=== PATIENT | male | born 1935 | race Hispanic/Latino ===

== ENCOUNTER 2018-09-15 12:13 | Inpatient (IN) | payer MEDICARE ==
[2018-09-15 13:07] LABS: #Lymphocytes 0.8 thou/uL (1.20-3.40); #Monocytes 0.5 thou/uL (0.11-0.59); #Neutrophils 9.6 thou/uL (1.40-6.50); %Basophils 0.1 % (0.0-1.0); %Eosinophils 0.1 % (0.0-10.0); %Lymphocytes 7.3 % (21.0-51.0); %Monocytes 4.9 % (0.0-10.0); %Neutrophils 87.7 % (42.0-75.0); Hemoglobin 12.5 g/dL (14.0-18.0); Mean Corpuscular Hemoglobin 33.3 pg (27.0-31.0); Platelet Count 240 thou/uL (130-400); Red Blood Cell (RBC) Count 3.74 mill/uL (4.70-6.10)
[2018-09-15 13:23] LABS: ALT (SGPT) 103 U/L (8-55); AST (SGOT) 41 U/L (5-34); Alkaline Phosphatase 526 U/L (40-150); Anion Gap 16 mmol/L (10-20); BUN (Urea Nitrogen) 22 mg/dL (8.4-25.7); Bilirubin, Total 7.6 mg/dL (0.2-1.2); Calc. Creatinine Clearance 0 mL/min (70-130); Calcium 9.5 mg/dL (7.8-10.44); Carbon Dioxide 23 mmol/L (23-31); Chloride 101 mmol/L (98-107); Estimated GFR-MDRD 68; Globulin 3.2 g/dL (2.4-3.5); Glucose 186 mg/dL (83-110); Potassium 3.5 mmol/L (3.5-5.1); Protein, Total 7.2 g/dL (5.8-8.1); Sodium 136 mmol/L (136-145)
--- NOTE | 2018-09-15 14:15 | CT ---
FCT abdomen with contrast CT pelvis with contrast: 09/15/2018 HISTORY: 82-year-old male with colon cancer presents with painless jaundice. COMPARISON: Aortic dissection protocol CT angiogram of 11/26/2015. FINDINGS: Again noted is the 10 mm calcified round mobile gallstone. Bilateral mural thickening of the gallblad joie without definite pericholecystic edema. No abdominal aortic aneurysm. No acute pancreatitis or pa ncreatic mass. No splenomegaly. No adrenal nodule. Several bilateral renal cysts. No hydronephrosis. IVC filter. No biliary ductal dilation. Previously demonstrated dilation of the small intestine and s tomach are not present. Otherwise, there has been no other significant interval change. Normal urinar y bladder. High-grade degenerative disc disease and facet DJD in the lumbar spine with severe lumbar central spinal canal stenosis. Anastomotic suture line at rectosigmoid junction. Normal appendix. Abs ence of: In the region of the expected transverse and descending colon. No ascites or pneumoperitoneu m. No consolidation at lung bases. No pleural effusion. IMPRESSION: 1. Cholelithiasis. 2. Severe lumbar spondylosis and 1 level of severe lumbar central spinal canal stenosis. 3. Status post subtotal left hemicolectomy. 4. Inferior vena cava filter. 5. Bilateral renal cysts. 6. No evidence of liver disease and no biliary obstruction identified.
[2018-09-15] MEDS ORDERED: ISOVUE-370 76%-LOCM 1 ML ONE (15:21)
--- NOTE | 2018-09-15 16:28 | PDOC.FPRHP ---
- History of Present Illness Chief Complaint: jaundice History of Present Illness: 82 yo M with hx of colon cancer & resection presents with jaundice. Noticed by his family yesterday in his eyes and skin. Patient denies any other symptoms. In ED elevated lipase in 700s with CT abdomen neg. for acute pancreatitis, pancreatic tumor, GB biliary distension or acute cholecystitis. Pt denies any nausea, vomiting, abdominal pain or prior pancreatitis. Last BM today-normal in consistency and color. Patient has not been to doctor in very long time & denies any health problems aside from colon CA ED Course: General surgery consulted from ED-no urgent intervention at the time, referred to GI for initial recs. - Allergies/Adverse Reactions Allergies Allergy/AdvReac Type Severity Reaction Status Date / Time No Known Drug Allergies Allergy Verified 11/26/15 15:29 - Home Medications Medication Instructions Recorded Confirmed Type Lisinopril [Zestril] 10 mg PO DAILY #30 tab 11/29/15 09/15/18 Rx - History PMHx: Patient denies, but upon chart review: hx of colon CA s/p colectomy, hypothyroidism, history of CVA PSHx: Colectomy for colon CA, unsure of date FHx:patient says "some cancers" Social: Denies e/t/d. Retired, , has one chlid - Review of Systems General: denies: fever/chills, weight/appetite/sleep changes Eyes: denies: eye pain, vision changes ENT: denies: nasal congestion Respiratory: denies: cough, congestion, shortness of breath Cardiovascular: denies: chest pain, palpitation Gastrointestinal: denies: nausea, vomiting, diarrhea, constipation, abdominal pain, GI bleeding Skin: reports: jaundice. denies: rashes, lesions, itching Musculoskeletal: denies: pain, tenderness, stiffness Neurological: denies: numbness, syncope Psychological: denies: anxiety, depression - Vital signs BP: [150/54] HR: [68] RR: [18] Tmax: [97.8] Pox: [98% on [RA] Wt: [] - Physical Exam Constitutional: NAD, awake, alert and oriented HEENT: normocephalic and atraumatic, PERRLA, EOMI, normal nasal mucosa, MMM -HEENT: scleral icterus Neck: supple, FROM Chest: no-tender to palpation, no lesions Heart: RRR, normal S1/S2 Lungs: CTAB, no respiratory distress, no wheezing Abdomen: soft, non-tender, bowel sounds present, no masses/distention Musculoskeletal: normal structure, normal tone Neurological: no focal deficit, CN II-XII intact Skin: no rash/lesions, good turgor, capillary refill <2 seconds Heme/Lymphatic: no unusual bruising or bleeding Psychiatric: normal mood and affect -Psychiatric: poor remote memory FMR H&P: Results - Labs Result Diagrams: 09/16/18 06:35 09/16/18 06:35 Lab results: WBC 11.0 thou/uL (4.8-10.8) H 09/15/18 12:43 Hgb 12.5 g/dL (14.0-18.0) L 09/15/18 12:43 Hct 37.8 % (42.0-52.0) L 09/15/18 12:43 MCV 101.0 fL (78.0-98.0) H 09/15/18 12:43 Plt Count 240 thou/uL (130-400) 09/15/18 12:43 Neutrophils % 87.7 % (42.0-75.0) H 09/15/18 12:43 Sodium 136 mmol/L (136-145) 09/15/18 12:43 Potassium 3.5 mmol/L (3.5-5.1) 09/15/18 12:43 Chloride 101 mmol/L (98-107) 09/15/18 12:43 Carbon Dioxide 23 mmol/L (23-31) 09/15/18 12:43 BUN 22 mg/dL (8.4-25.7) 09/15/18 12:43 Creatinine 1.04 mg/dL (0.7-1.3) 09/15/18 12:43 Glucose 186 mg/dL (83-110) H 09/15/18 12:43 Calcium 9.5 mg/dL (7.8-10.44) 09/15/18 12:43 Total Bilirubin 7.6 mg/dL (0.2-1.2) H 09/15/18 12:43 AST 41 U/L (5-34) H 09/15/18 12:43 ALT 103 U/L (8-55) H 09/15/18 12:43 Alkaline Phosphatase 526 U/L (40-150) H 09/15/18 12:43 Serum Total Protein 7.2 g/dL (5.8-8.1) 09/15/18 12:43 Albumin 4.0 g/dL (3.4-4.8) 09/15/18 12:43 Lipase 794 U/L (8-78) H 09/15/18 12:43 - Radiology Interpretation CT scan - abdomen Status: report reviewed by me (+cholelithiasis, neg pancreatitis/tumor) FMR H&P: A/P - Problem List (1) Jaundice Current Visit: Yes Status: Acute Code(s): R17 - UNSPECIFIED JAUNDICE (2) Cholelithiasis Current Visit: No Status: Acute Code(s): K80.20 - CALCULUS OF GALLBLADDER W/ O CHOLECYSTITIS W/O OBSTRUCTION Qualifiers: Cholangitis acuity: unspecified acuity Biliary obstruction: without biliary obstruction (3) History of colon cancer Current Visit: No Status: Acute Code(s): Z85.038 - PERSONAL HISTORY OF MALIGNANT NEOPLASM OF LARGE INTESTINE (4) Hyperbilirubinemia Current Visit: No Status: Acute Code(s): E80.6 - OTHER DISORDERS OF BILIRUBIN METABOLISM (5) Small bowel obstruction Current Visit: No Status: Acute Code(s): K56.69 - OTHER INTESTINAL OBSTRUCTION * DO NOT USE * (6) History of CVA (cerebrovascular accident) Current Visit: No Status: Chronic Code(s): Z86.73 - PRSNL HX OF TIA (TIA), AND CEREB INFRC W/O RESID DEFICITS - Plan 82 yo M with hx of colon CA with asymptomatic jaundice and hyperbilirubinemia Jaundice with direct hyperbilirubinemia -concern for gallstone pancreatitis in light of lipase in 700s and elevated LFTs. However, no abd pain, CT abd neg. Will obtain RUQ US -WBC 11, start on zosyn -also concern for malignancy thougth CT Abd with no consistent findings -Gen surg consulted, think less likely gallstone pancreatitis -GI consulted, will see today, likely diagnostic MRCP tmrw due to concern for malignancy- appreciate further recs Elevated LFTs -malignancy vs. hepatitis vs. obstruction -order hepatitis panel Macrocytic anemia -stable -will check b9/b12 Possible hypothyroidism -pt unable to confirm, seen on prior chart review -will check TSH Hx of CVA -Pt also doesn't remember, will check lipid panel, no neuro deficits on exam -Start daily ASA code: full diet: npo dvt ppx: lovenox FMR H&P: Upper Level - Pertinent history 82M initially presenting to the ED for left flank pain that has since resolved. However, on intake laboratory studies he was found to have elevations in bilirubin, alk phos, AST, ALT, and lipase. Patient denies any abdominal pain, nausea, vomiting, decreased PO intake, or unintentional weight loss. GS consulted from ED. Given his age, they recommended GI consultation for further work up given essentially negative CT scan. Patient is grossly jaundiced, but he is unsure of when this began. He has a history of colon CA, but is a very poor historian. Per chart review, pt has hx of moderately differentiated adenocarcinoma of sigmoid colon that was resected with laparoscopic low-anterior resection in April then followed by L hemicolectomy for discoid lesion found in . Pt had surveillance colonoscopy in October with polypectomy that showed tubular adenoma with high grade dysplasia. He had another polyp removed in 2015 that was fouond to be tubular adenoma. - Pertinent findings 142/68 mmHg 67 bpm 22 RR 98.3F 100% on RA Gen: A&Ox3 CV: RRR; no murmurs Pulm: CTA-B Abd: soft; nonTTP; non distended Skin: scleral icterus; jaundiced Total bili: 5.7 Direct bili: 4.4 CT abdomen: cholelithiasis; s/p subtotal hemicolectomy; IVC filter Lipase: 794 Alk Phos: 526 AST/ALT: 41/103 WBC: 11; 87% N H/H: 12.5/37.8 MCV: 101 - Plan Date/Time: 09/15/18 1628 I, Vasile Grullon, have evaluated this patient and agree with findings/plan as outlined by manager internet retails sales resident. Pertinent changes/additions are listed here. Hyperbilirubinemia: not entirely consistent with gallstone pancreatitis given her negative CT scan. Suspicious for malignancy. GI has been consulted and will perform diagnostic MRCP in AM. RUQ US ordered and pending at this time. Cover with Zosyn in the meantime. Addendum - Attending - Attending Attestation Date/Time: 09/15/18 2460 I personally evaluated the patient and discussed the management with Dr. Smith. I agree with the History, Examination, Assessment and Plan documented above with any addition or exceptions noted below. The patient presents to the ER with back pain and jaundice. He was found to have an elevated lipase but he denies abdominal pain. Pt has a history of colon cancer s/p resection. CT abdomen and ruq u/s done showing cholelithiasis and gallbladder wall thickening. Pt has no abdominal tenderness on exam. Jaundice and scleral icterus is pronounced. General surgery and GI will be consulted. Will treat with zosyn. IV fluids.
[2018-09-15 16:43] LABS: Bilirubin, Direct 4.4 mg/dL (0.1-0.3); Bilirubin, Total 5.7 mg/dL (0.2-1.2)
--- NOTE | 2018-09-15 17:55 | ULT ---
FGallbladder ultrasound: Multiple grayscale images of right upper quadrant obtained according to protocol. INDICATION: Jaundice FINDINGS: Liver: Hepatic steatosis. Gallbladder: Cholelithiasis. Gallbladder wall: Thickened, measuring 4 mm. Gibbons's Sign: Negative Common bile duct is normal. Ascites: None Incidental note of hypoechoic focus of the right kidney likely a cyst although is difficult to defini tively characterize on the basis of this exam due to decreased acoustic penetration of this region. F inding measures approximately 2 cm in diameter. IMPRESSION: Cholelithiasis. There is gallbladder wall thickening which may represent associated cholecystitis. Co rrelate clinically. As necessary, HIDA scan may be performed to evaluate acute versus chronic cholecy stitis.
[2018-09-15 18:00] VITALS: BMI 23.2
[2018-09-15] MEDS: Piperacillin/Tazobactam 3.375 GM in Sodium Chloride 0.9% 100 ML IVPB SCH ×2 (18:07→23:21)
[2018-09-15] MEDS: Lactated Ringer's 1,000 ML IV SCH (18:08)
[2018-09-15 18:26] LABS: HBSAg Index 0.33 S/CO (0-0.99); Hep B Surf Ag Non-Reactive S/CO (NonReactive)
[2018-09-15 18:30] LABS: Hep B Surf AB Non-Reactive (NonReactive)
[2018-09-15 18:31] LABS: Hep C IgG Ab Non-Reactive (NonReactive); Hep C Index 0.11 S/CO (0-0.79)
[2018-09-15 18:57] LABS: Cardiac Risk 6.8 (Less than 4.5)
[2018-09-15 20:36] LABS: Vitamin B12 Less than 109 pg/mL (211-911)
[2018-09-16 00:16] LABS: Amphetamine Not Detected (NotDetected); Barbiturates Screen Not Detected (NotDetected); Benzodiazepine Screen Not Detected (NotDetected); Cocaine Metabolite Screen Not Detected (NotDetected); Medtox Control Line Valid? VALID (VALID); Medtox Reader # READER 1; Methadone Not Detected (NotDetected); Methamphetamine Not Detected (NotDetected); Opiate Screen Not Detected (NotDetected); Oxycodone Screen Not Detected (NotDetected); Phencyclidine (PCP) Not Detected (NotDetected); THC/Cannabinoid Screen Not Detected (NotDetected); Tricyclic Screen Not Detected (NotDetected)
--- NOTE | 2018-09-16 01:43 | CON ---
DATE OF CONSULTATION: 09/15/2018 REQUESTING PHYSICIAN: Dr. Smith. REASON FOR CONSULTATION: Elevated LFTs. HISTORY OF PRESENT ILLNESS: Mr. Chip Fleming is a very pleasant 82-year-old man. He has previously been seen by my GI colleague, Dr. Klever Cheng. He has a significant past medical history for 3 primary colon cancers. The first was a sigmoid adenocarcinoma diagnosed in 2006 for which he underwent low anterior resection. He then had another primary cancer in 2007 requiring left hemicolectomy in 2009. Followup colonoscopy demonstrated a sessile serrated adenoma with high-grade dysplasia and a focus of intramucosal carcinoma, that polyp was completely excised. Dr. Cheng had recommended repeat colonoscopy at a 1 year interval, but it appears the patient never followed up for that. The patient himself does not recall any interval colonoscopy in the time period since then. At any rate, the patient reports no chronic gastrointestinal symptoms. Earlier today, he was having some pain on the left side of his back and this seemed to shift around to involve his whole abdomen quite transiently. He then was acutely nauseated and had a single episode of vomiting and the pain subsided significantly. He still has a bit of discomfort in the left side of his back, but no further abdominal pain, no further nausea, but while all this was going on, it was noted that he did appear jaundiced. He has never noticed this before. It is unclear how acute or chronic this might be. Upon presentation to the emergency department laboratory studies demonstrated bilirubin elevation to 7.6 with alkaline phosphatase of 526, AST 41, and ALT 103. CT imaging demonstrated gallbladder thickening, but no evidence of pericholecystic edema or fluid. There was a single gallstone in the gallbladder. There is no biliary dilation. Abdominal ultrasound was performed, which also shows cholelithiasis and gallbladder thickening, but normal common bile duct. The patient has no known history of primary liver disease. He denies taking any Tylenol recently. He is not on any medications as an outpatient. He does not drink alcohol. REVIEW OF SYSTEMS: Full review of systems including constitutional, head, eyes, ears, nose, throat, GI, , cardiovascular, respiratory, musculoskeletal, neurologic systems is negative except as noted in the HPI. PAST MEDICAL HISTORY: 1. Sigmoid adenocarcinoma status post low anterior resection in 2006. 2. Left hemicolectomy for recurrent cancer in 2007. 3. A 2009 colonoscopy showing sessile serrated adenoma with high-grade dysplasia and intramucosal carcinoma, completely excised. 4. No colonoscopy since that time. 5. IVC filter, I am unsure why this was placed or when. ALLERGIES: NO KNOWN DRUG ALLERGIES. OUTPATIENT MEDICATIONS: None per the patient. INPATIENT MEDICATIONS: Zosyn IV. FAMILY HISTORY: Noncontributory. SOCIAL HISTORY: The patient denies alcohol, tobacco, or drug use. He is retired and . He has 1 child, a grandson is here with him today. PHYSICAL EXAMINATION: VITAL SIGNS: Temperature 98.3, pulse 67, blood pressure 142/68, 100% oxygen saturation on room air. GENERAL: An 82-year-old man, grossly jaundiced, but appearing otherwise well, lying in bed comfortably, in no acute distress. MENTAL: Alert and fully oriented, pleasant, conversational. SKIN: He is jaundiced. No rashes were palpable. EYES: Scleral icterus. Extraocular movements intact. ENT: Mucous membranes moist. No oral lesions. LYMPH NODES: No submandibular or supraclavicular lymphadenopathy. Thyroid nontender to palpation. HEART: Regular rate and rhythm. LUNGS: Clear to auscultation bilaterally. ABDOMEN: Bowel sounds are present. Soft, nontender to palpation throughout the abdomen including the right upper quadrant. No masses or organomegaly appreciated. EXTREMITIES: No peripheral edema. VESSELS: Radial pulses 2+ bilaterally. NEUROLOGIC: Cranial nerves 2-12 intact bilaterally. No focal deficits. LABORATORY STUDIES: WBC 11, hemoglobin 12.5, platelets 240. Sodium 136, potassium 3.5, BUN 22, creatinine 1.04. Troponin negative. Lipase 794. Total bilirubin 7.6, alkaline phosphatase 526, AST 41, ALT 103, albumin 4.0. IMAGING STUDIES: Abdominal ultrasound shows cholelithiasis and gallbladder wall thickening, but normal common bile duct. No evidence of any ascites. CT scan of the abdomen and pelvis demonstrates gallbladder thickening, but no pericholecystic edema or fluid. There is a single gallstone. Pancreas and spleen appear normal. There is no biliary dilation. There is an anastomosis at the rectosigmoid junction and also an IVC filter. ASSESSMENT AND PLAN: 1. Jaundice, new onset, painless. 2. Vomiting, single episode, unclear if this was related to the jaundice. 3. Elevated lipase, without associated abdominal pain. This presentation is somewhat atypical. The patient has essentially painless jaundice without any real symptoms that can be associated with it. Lipase is elevated without overt symptoms of pancreatitis or findings of pancreatic inflammation on CT. Imaging shows cholelithiasis and some gallbladder wall thickening, but I agree that this would be an atypical presentation for acute cholecystitis with no ongoing abdominal pain symptoms. Need to consider primary hepatocellular process. I note negative serologies for hepatitis B and C. I have ordered further liver lab workup including autoimmune markers, iron indices, IgG level, Tylenol level and urine drug screen, need to check an INR and trend LFTs and INR going forward. I think a HIDA scan would be potentially helpful, so we will get a HIDA scan as well. General surgery has also been consulted, so we will await their recommendations as well. 4. Thank you for the consultation. Please call anytime with questions or concerns. Job ID: [id number]
[2018-09-16] MEDS: Lactated Ringer's 1,000 ML IV SCH ×3 (02:39→15:51)
[2018-09-16] MEDS: Piperacillin/Tazobactam 3.375 GM in Sodium Chloride 0.9% 100 ML IVPB SCH ×4 (05:12→23:15)
--- NOTE | 2018-09-16 06:17 | PDOC.FM ---
- Subjective Subjective: Mr. Fleming has no new complaints. He has some minor L sided flank pain that is improving. Otherwise no pain. Denies nausea, diarrhea. - Objective Vital Signs & Weight: Vital Signs (12 hours) Temp Pulse Resp BP Pulse Ox 09/16/18 05:27 98.5 F 73 18 141/64 H 98 09/16/18 01:03 98.4 F 72 18 131/79 98 09/15/18 20:00 98.2 F 85 18 154/71 H 96 Weight Weight 82 kg I&O: 09/14/18 09/15/18 09/16/18 06:59 06:59 06:59 Intake Total 681 Output Total 400 Balance 281 Result Diagrams: 09/16/18 06:35 09/16/18 06:35 Phys Exam - Physical Examination Constitutional: NAD Respiratory: clear to auscultation bilateral Cardiovascular: RRR, no significant murmur Gastrointestinal: soft Musculoskeletal: no edema Neurological: non-focal, moves all 4 limbs Deviation from normal: jaundice Dx/Plan (1) Jaundice Code(s): R17 - UNSPECIFIED JAUNDICE Status: Acute (2) Cholelithiasis Code(s): K80.20 - CALCULUS OF GALLBLADDER W/O CHOLECYSTITIS W/O OBSTRUCTION Status: Acute Qualifiers: Cholangitis acuity: unspecified acuity Biliary obstruction: without biliary obstruction (3) History of colon cancer Code(s): Z85.038 - PERSONAL HISTORY OF MALIGNANT NEOPLASM OF LARGE INTESTINE Status: Acute (4) Hyperbilirubinemia Code(s): E80.6 - OTHER DISORDERS OF BILIRUBIN METABOLISM Status: Acute (5) History of CVA (cerebrovascular accident) Code(s): Z86.73 - PRSNL HX OF TIA (TIA), AND CEREB INFRC W/O RESID DEFICITS Status: Chronic (6) Hypertension Code(s): I10 - ESSENTIAL (PRIMARY) HYPERTENSION Status: Chronic Qualifiers: Hypertension type: essential hypertension Qualified Code(s): I10 - Essential (primary) hypertension - Plan Plan: 82 yo M with hx of colon CA with asymptomatic jaundice and hyperbilirubinemia Jaundice with direct hyperbilirubinemia, improving - lipase 700s - RUQ US showed cholelithiasis, gallbladder wall thickening. Pending HIDA today -WBC 11, started on zosyn 09/15 -also concern for malignancy though CT Abd with no consistent findings -Gen surg consulted, think less likely gallstone pancreatitis -GI consulted - pending workup, appreciate further recs Elevated LFTs -malignancy vs. hepatitis vs. obstruction -Hepatitis panel negative Macrocytic anemia -stable -B12 low, will start B12 supplement. Also both iron and TIBC low. Hx of CVA -Pt also doesn't remember, will check lipid panel, no neuro deficits on exam -Start daily ASA code: full diet: npo dvt ppx: lovenox Dispo: pending workup Addendum - Attending - Attending Attestation Date/Time: 09/16/18 0982 I personally evaluated the patient and discussed the management with Dr. Hodges. I agree with the History, Examination, Assessment and Plan documented above with any addition or exceptions noted below. Patient was seen this morning following his hida scan. Results are pending. He remains jaundiced. Awaiting specialist recs. He still has no abdominal pain.
[2018-09-16 06:58] LABS: #Lymphocytes 0.7 thou/uL (1.20-3.40); #Monocytes 0.3 thou/uL (0.11-0.59); #Neutrophils 7.2 thou/uL (1.40-6.50); %Eosinophils 0.3 % (0.0-10.0); %Neutrophils 87.6 % (42.0-75.0); Hemoglobin 11.4 g/dL (14.0-18.0); Mean Corpuscular HGB CONC 33.4 g/dL (32.0-36.0); Mean Corpuscular Hemoglobin 33.5 pg (27.0-31.0); Platelet Count 200 thou/uL (130-400); RBC Distribution Width 11.9 % (11.5-14.5); White Blood Cell (WBC) Count 8.3 thou/uL (4.8-10.8)
[2018-09-16 07:04] LABS: INR-International Normal Ratio 1.1; Prothrombin Time 14.3 SEC (12.0-14.7)
[2018-09-16 07:18] LABS: ALT (SGPT) 71 U/L (8-55); AST (SGOT) 22 U/L (5-34); Acetaminophen Less than 6.0 mcg/mL (10.0-30.0); Albumin 3.5 g/dL (3.4-4.8); Alkaline Phosphatase 430 U/L (40-150); Anion Gap 13 mmol/L (10-20); BUN (Urea Nitrogen) 21 mg/dL (8.4-25.7); Bilirubin, Total 3.4 mg/dL (0.2-1.2); Calc. Creatinine Clearance 79 mL/min (70-130); Carbon Dioxide 24 mmol/L (23-31); Chloride 105 mmol/L (98-107); Estimated GFR-MDRD 87; Globulin 2.8 g/dL (2.4-3.5); Glucose 129 mg/dL (83-110); Iron 24 ug/dL (65-175); Iron Binding Capacity, Total 154 mcg/dL (261-462); Potassium 3.5 mmol/L (3.5-5.1); Protein, Total 6.3 g/dL (5.8-8.1); Sodium 138 mmol/L (136-145)
[2018-09-16] MEDS: Enoxaparin Sodium 40 MG/0.4 ML SYRINGE SC SCH (07:44)
[2018-09-16] MEDS ORDERED: Prevnar 13-Val Conj/PF 0.5 ML SYRINGE IM ONE (09:00)
--- NOTE | 2018-09-16 12:54 | NM ---
HIDA SCAN: Radiopharmaceutical: 5.1 mCi technetium 99m mebrofenin IV. CLINICAL HISTORY: Elevated liver function enzymes, abnormal gallbladder ultrasound, jaundice. FINDINGS: Homogeneous uptake of radiotracer is seen within the liver. The gallbladder is visualized prior to on e hour of imaging. Activity is also seen within the common duct and bowel. Subsequent to administration of cholecystokinin, gallbladder ejection fraction is measured, calculate d at 47%, which is within normal limits. IMPRESSION: 1. No scintigraphic evidence of cystic duct obstruction. 2. Normal gallbladder ejection fraction. Transcribed Date/Time: 09/16/2018 1:04 PM
--- NOTE | 2018-09-16 18:41 | PRG ---
DATE OF SERVICE: 09/16/2018 SUBJECTIVE: Mr. Fleming has no abdominal pain. No nausea or vomiting. No acute complaints. OBJECTIVE: VITAL SIGNS: Temperature 98.4, pulse 69, and blood pressure 199/74. GENERAL: He is in no acute distress. He is alert and oriented. HEENT: He has a slight scleral icterus. Oropharynx is clear without lesions. LUNGS: Clear to auscultation bilaterally. HEART: Regular rate and rhythm. ABDOMEN: Soft, nontender, and nondistended. Bowel sounds are present. EXTREMITIES: No lower extremity edema. IMPRESSION: 1. Apparent gallstone pancreatitis based on the elevated liver tests and elevated lipase and ultrasound showing cholelithiasis. Clinically, he has not had abdominal pain to indicate the pancreatitis. However, given his age, he may not exhibit the typical symptoms. 2. Abnormal liver tests. Suspected choledocholithiasis causing pancreatitis. Maybe that he passed the stone out given that his bilirubin is decreasing and his bile ducts are not dilated by imaging. 3. History of colon cancer and polyps with high-grade dysplasia. He had sigmoid resection followed later by a right colon resection. He had another followup colonoscopy with third polyp, flat polyp that only measured 1.3 cm with high-grade dysplasia, removed endoscopically. Followup exam was recommended then, but however, he has had no followup colonoscopy over the last nine years. He has no GI symptoms now without lower abdominal pain or diarrhea, or constipation or blood in the stool. RECOMMENDATIONS: 1. Plan is for laparoscopic cholecystectomy with intraoperative cholangiogram tomorrow. If his IOC is positive, then ERCP will be the next step. 2. He should eventually undergo followup colonoscopy. This could potentially be done as an outpatient in the future. 3. We will continue to follow the trend of the liver tests. Again, the symptoms are not really suggestive of pancreatitis or choledocholithiasis given his lack of upper abdominal pain. However, we will see what the intraoperative cholangiogram shows and what the trend of liver tests do. Job ID: [id number]
[2018-09-16] MEDS ORDERED: Famotidine 20 MG TAB PO SCH (20:00)
--- NOTE | 2018-09-16 20:27 | CON ---
DATE OF CONSULTATION: 09/16/2018 CONSULTING PHYSICIAN: Maureen Smith MD REASON FOR CONSULTATION: Cholelithiasis, jaundice, and pancreatitis. HISTORY OF PRESENT ILLNESS: The patient is a pleasant 82-year-old male. He is known to myself from a laparoscopic sigmoid colectomy in 2006. 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 For reasons that are not clear, he had a subsequent left hemicolectomy for a second smaller cancer about a year later. This was performed by another surgeon, which was done as an open operation. He had his last colonoscopy in 2009; at which time, there was a finding of a serrated adenoma. Apparently,he has not undergone any subsequent endoscopy. He presented to the hospital yesterday complaining of left-sided flank pain that radiated around involving entire abdomen that led to an episode of emesis. In the emergency room, he was evaluated with laboratory and radiologic studies. His laboratory studies were primarily abnormal for significant jaundice and lipase elevation. His bilirubin was elevated at 7.6. Later that evening, it was rechecked and was found to have dropped down to 5.7 with a direct component of 4.4. His lipase was somewhat elevated at 794. Transaminases were little elevated and his alkaline phosphatase was quite elevated at 526. His laboratory studies from this morning revealed that his bilirubin has dropped down to 3.4 and his lipase has dropped down to 462. His CEA level was checked and is normal at 2.47. His radiologic studies obtained included a CT scan and an ultrasound. The CT scan revealed evidence of cholelithiasis, but no definite evidence of pancreatic abnormality or mass. There was no evidence of ductal dilatation. Ultrasound was obtained that confirmed the cholelithiasis and also did not reveal any significant common duct dilatation. Finally, a HIDA scan was performed this morning with normal filling of the gallbladder and normal ejection fraction. The patient denies any current symptoms in regard to his back or abdomen. He tells me that he is hungry. PAST MEDICAL HISTORY: 1. History of alcoholism when he was much younger. He states that he has not drank since I did his surgery 10 years ago. 2. He also had a history of hypothyroidism, but it is noted that he is not on any current medications and his TSH upon admission was normal. 3. Cerebrovascular accident in 2007. PAST SURGICAL HISTORY: 1. Laparoscopic sigmoid colectomy in April 2007. 2. Percutaneous endoscopic gastrostomy tube in June 2007. 3. Open left hemicolectomy in March 2008. MEDICATIONS: None. PRIMARY CARE PHYSICIAN: None. ALLERGIES: NO KNOWN DRUG ALLERGIES. PERSONAL AND SOCIAL HISTORY: He is apparently and lives with his daughter in [place]. 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 He denies alcohol or tobacco use. REVIEW OF SYSTEMS: Otherwise, unremarkable. FAMILY HISTORY: Noncontributory. PHYSICAL EXAMINATION: VITAL SIGNS: Temperature is 98.9, pulse is 72, blood pressure is 147/56. GENERAL: He is a well-developed, well-nourished, pleasant male, resting in bed, in no acute distress. He is alert and oriented x3 and cooperative. HEAD, EYES, EARS, NOSE, AND THROAT: Unremarkable. NECK: Supple without mass or tenderness. LUNGS: Clear to auscultation throughout. CARDIAC: Regular rate and rhythm without murmur. ABDOMEN: Soft, nontender, and nondistended with normoactive bowel sounds. He has a well-healed incision in his midline that does not extend up into the upper abdomen. EXTREMITIES: Unremarkable. LABORATORY DATA: As mentioned above. ASSESSMENT: The patient with jaundice of uncertain etiology. He did not appear to have ductal dilatation that would correspond with choledocholithiasis. He also does not appear to have a definite pancreatic mass. He does have gallstone, jaundice, and pancreatitis. At this time, I would recommend proceeding with laparoscopic cholecystectomy. We will consider liver biopsy at the time of surgery and would also plan on a cholangiogram. It is possible that he might benefit from an ERCP, but this could be determined based upon findings with his cholangiogram. I have discussed this with Dr. 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 Mr. Fleming agrees to proceed with surgery tomorrow. Job ID: [id number]
[2018-09-17] MEDS: Lactated Ringer's 1,000 ML IV SCH ×3 (03:30→17:54)
[2018-09-17] MEDS: Piperacillin/Tazobactam 3.375 GM in Sodium Chloride 0.9% 100 ML IVPB SCH ×2 (05:17→13:55)
--- NOTE | 2018-09-17 05:50 | PDOC.FM ---
- Subjective Subjective: Mr. Fleming denies any pain. Jaundice improving. Plan for surgery today. - Objective MAR Reviewed: Yes Vital Signs & Weight: Vital Signs (12 hours) Temp Pulse Resp BP Pulse Ox 09/17/18 00:00 97.8 F 67 16 132/72 98 09/16/18 20:00 98.9 F 76 18 173/83 H 97 Weight Weight 82 kg I&O: 09/15/18 09/16/18 09/17/18 06:59 06:59 06:59 Intake Total 681 780 Output Total 400 Balance 281 780 Result Diagrams: 09/17/18 06:30 09/17/18 06:30 Phys Exam - Physical Examination Constitutional: NAD Respiratory: clear to auscultation bilateral Cardiovascular: RRR Gastrointestinal: soft, non-tender Neurological: non-focal Psychiatric: normal affect Dx/Plan (1) Jaundice Code(s): R17 - UNSPECIFIED JAUNDICE Status: Acute (2) Cholelithiasis Code(s): K80.20 - CALCULUS OF GALLBLADDER W/O CHOLECYSTITIS W/O OBSTRUCTION Status: Acute Qualifiers: Cholangitis acuity: unspecified acuity Biliary obstruction: without biliary obstruction (3) History of colon cancer Code(s): Z85.038 - PERSONAL HISTORY OF MALIGNANT NEOPLASM OF LARGE INTESTINE Status: Acute (4) Hyperbilirubinemia Code(s): E80.6 - OTHER DISORDERS OF BILIRUBIN METABOLISM Status: Acute (5) History of CVA (cerebrovascular accident) Code(s): Z86.73 - PRSNL HX OF TIA (TIA), AND CEREB INFRC W/O RESID DEFICITS Status: Chronic (6) Hypertension Code(s): I10 - ESSENTIAL (PRIMARY) HYPERTENSION Status: Chronic Qualifiers: Hypertension type: essential hypertension Qualified Code(s): I10 - Essential (primary) hypertension - Plan Plan: 82 yo M with hx of colon CA with asymptomatic jaundice and hyperbilirubinemia Painless jaundice, improving - lipase 700s, possibly 2/2 gallstone pancreatitis/choledocholithiasis, though no biliary duct dilatation - RUQ US showed cholelithiasis, gallbladder wall thickening. HIDA negative -WBC 11, started on zosyn 09/15 -also concern for malignancy though CT Abd with no consistent findings -Gen surg consulted, plan for lap lavern today with intraoperative cholangiogram -GI consulted - appreciate further recs - Patient will need colonoscopy in outpatient setting Elevated LFTs -continue to monitor, downtrending along with bilirubin as well -Hepatitis panel negative Macrocytic anemia -stable -B12 low, will start B12 supplement. Also both iron and TIBC low. Hx of CVA -Pt also doesn't remember, no neuro deficits on exam -Start daily ASA - not on statin, ASCVD 30%, will start statin code: full diet: npo dvt ppx: lovenox Dispo: lap lavern today Addendum - Attending - Attending Attestation Date/Time: 09/17/18 819 I personally evaluated the patient and discussed the management with Dr. Candelaria. I agree with the History, Examination, Assessment and Plan documented above with any addition or exceptions noted below. Pt will be going for lab lavern around lunchtime. Jaundice is improving. Bilirubin is decreasing.
[2018-09-17 06:47] LABS: #Eosinphils 0.1 thou/uL (0.0-0.7); #Monocytes 0.6 thou/uL (0.11-0.59); #Neutrophils 6.4 thou/uL (1.40-6.50); %Basophils 0.2 % (0.0-1.0); %Eosinophils 0.7 % (0.0-10.0); %Lymphocytes 12.4 % (21.0-51.0); %Monocytes 7.9 % (0.0-10.0); %Neutrophils 78.8 % (42.0-75.0); Hemoglobin 11.6 g/dL (14.0-18.0); Mean Corpuscular HGB CONC 33.4 g/dL (32.0-36.0); Platelet Count 210 thou/uL (130-400); RBC Distribution Width 11.7 % (11.5-14.5); White Blood Cell (WBC) Count 8.1 thou/uL (4.8-10.8)
[2018-09-17 07:01] LABS: ALT (SGPT) 56 U/L (8-55); AST (SGOT) 15 U/L (5-34); Albumin 3.5 g/dL (3.4-4.8); Alkaline Phosphatase 404 U/L (40-150); Anion Gap 12 mmol/L (10-20); BUN (Urea Nitrogen) 15 mg/dL (8.4-25.7); Bilirubin, Total 2.6 mg/dL (0.2-1.2); Calc. Creatinine Clearance 70 mL/min (70-130); Carbon Dioxide 24 mmol/L (23-31); Chloride 105 mmol/L (98-107); Estimated GFR-MDRD 77; Globulin 3.2 g/dL (2.4-3.5); Glucose 139 mg/dL (83-110); Lipase 167 U/L (8-78); Potassium 3.1 mmol/L (3.5-5.1); Protein, Total 6.7 g/dL (5.8-8.1); Sodium 138 mmol/L (136-145)
[2018-09-17] MEDS: Enoxaparin Sodium 40 MG/0.4 ML SYRINGE SC SCH (07:26)
[2018-09-17] MEDS: Cyanocobalamin (Vitamin B-12) 1,000 MCG TAB PO SCH (07:27)
[2018-09-17] MEDS ORDERED: Lisinopril 10 MG TAB PO SCH (09:00)
[2018-09-17] MEDS ORDERED: Fentanyl 100 MCG/2 ML VIAL ONE ×4 (12:18→15:19)
[2018-09-17] MEDS ORDERED: Bupivacaine/Epinephrine 0.25% 30 ML VIAL ONE (12:19)
[2018-09-17] MEDS ORDERED: Iothalamate Meglumine 60% 50 ML VIAL FS ONE (12:20)
[2018-09-17] MEDS ORDERED: PHENYLEPHRINE-NS 100 MCG/ML 10 ML SYRINGE ONE (13:23)
[2018-09-17] MEDS ORDERED: Lidocaine 1% PF 5 ML VIAL ONE (13:23)
[2018-09-17] MEDS ORDERED: Dexamethasone 20 MG/5 ML VIAL ONE (13:23)
[2018-09-17] MEDS ORDERED: Glycopyrrolate 0.2 MG/ML 5 ML SYRINGE ONE (13:23)
[2018-09-17] MEDS ORDERED: Rocuronium Bromide 10 MG/ML (10ML VIAL) ONE (13:23)
[2018-09-17] MEDS ORDERED: PROPOFOL 200 MG/20 ML VIAL ONE (13:23)
[2018-09-17] MEDS ORDERED: Ondansetron PF 4 MG/2 ML Vial ONE (13:23)
--- NOTE | 2018-09-17 14:15 | RAD ---
XR Cholangiogram in Surgery History: [Intraoperative cholangiogram] Comparison: CT abdomen and pelvis September 15, 2018 Findings: There is tapering in the distal common bile duct which is dilated. No definite stone is madhu reciated. Impression: Dilated distal common bile duct with smooth tapering at the pancreatic duct confluence an d major papilla. Endoscopic ultrasound with brushings may be beneficial.
[2018-09-17] MEDS ORDERED: HYDROcodone/Acetaminophen 5/325 mg Tablet PO PRN (16:03)
[2018-09-17] MEDS ORDERED: Morphine 4 MG/ML VIAL SLOW IVP PRN ×2 (16:03)
[2018-09-17] MEDS: Atorvastatin Calcium 40 MG TAB PO SCH (19:31)
[2018-09-18] MEDS: Lactated Ringer's 1,000 ML IV SCH (04:32)
[2018-09-18 05:37] LABS: #Lymphocytes 0.5 thou/uL (1.20-3.40); #Monocytes 0.3 thou/uL (0.11-0.59); #Neutrophils 4.6 thou/uL (1.40-6.50); %Basophils 0.4 % (0.0-1.0); %Lymphocytes 9.8 % (21.0-51.0); %Monocytes 5.7 % (0.0-10.0); %Neutrophils 84.1 % (42.0-75.0); Hemoglobin 10.7 g/dL (14.0-18.0); Mean Corpuscular HGB CONC 33.8 g/dL (32.0-36.0); Mean Corpuscular Hemoglobin 34.4 pg (27.0-31.0); Mean Platelet Volume 8.5 fL (7.4-10.4); Platelet Count 194 thou/uL (130-400); RBC Distribution Width 11.8 % (11.5-14.5); Red Blood Cell (RBC) Count 3.11 mill/uL (4.70-6.10); White Blood Cell (WBC) Count 5.5 thou/uL (4.8-10.8)
[2018-09-18 05:51] LABS: ALT (SGPT) 41 U/L (8-55); AST (SGOT) 20 U/L (5-34); Alkaline Phosphatase 313 U/L (40-150); Anion Gap 9 mmol/L (10-20); BUN (Urea Nitrogen) 15 mg/dL (8.4-25.7); Bilirubin, Total 1.4 mg/dL (0.2-1.2); Calc. Creatinine Clearance 87 mL/min (70-130); Calcium 8.6 mg/dL (7.8-10.44); Carbon Dioxide 26 mmol/L (23-31); Chloride 108 mmol/L (98-107); Estimated GFR-MDRD Greater than 90; Globulin 2.7 g/dL (2.4-3.5); Glucose 215 mg/dL (83-110); Potassium 4.1 mmol/L (3.5-5.1); Protein, Total 5.7 g/dL (5.8-8.1); Sodium 139 mmol/L (136-145)
--- NOTE | 2018-09-18 06:09 | PDOC.FM ---
- Subjective Subjective: Mr. Fleming says he is feeling well. Reports some incisional abdominal tenderness. Ambulated to bathroom. Has passed flatus. - Objective MAR Reviewed: Yes Vital Signs & Weight: Vital Signs (12 hours) Temp Pulse Resp BP Pulse Ox 09/18/18 04:43 98.8 F 78 20 170/68 H 99 09/17/18 23:46 98.0 F 66 18 142/70 H 67 L 09/17/18 22:07 97 09/17/18 21:45 70 18 168/65 H 96 09/17/18 19:37 97.7 F 76 20 170/61 H 97 Weight Weight 82 kg I&O: 09/16/18 09/17/18 09/18/18 06:59 06:59 06:59 Intake Total 681 780 600 Output Total 400 Balance 281 780 600 Result Diagrams: 09/18/18 04:52 09/18/18 04:52 Phys Exam - Physical Examination Constitutional: NAD Respiratory: clear to auscultation bilateral Cardiovascular: RRR, no significant murmur Gastrointestinal: soft, no distention mild erythema around incisions, appropriately tender Musculoskeletal: no edema Neurological: non-focal Skin: normal turgor Deviation from normal: jaundice improving Dx/Plan (1) Jaundice Code(s): R17 - UNSPECIFIED JAUNDICE Status: Acute (2) Cholelithiasis Code(s): K80.20 - CALCULUS OF GALLBLADDER W/O CHOLECYSTITIS W/O OBSTRUCTION Status: Acute Qualifiers: Cholangitis acuity: unspecified acuity Biliary obstruction: without biliary obstruction (3) History of colon cancer Code(s): Z85.038 - PERSONAL HISTORY OF MALIGNANT NEOPLASM OF LARGE INTESTINE Status: Acute (4) Hyperbilirubinemia Code(s): E80.6 - OTHER DISORDERS OF BILIRUBIN METABOLISM Status: Acute (5) History of CVA (cerebrovascular accident) Code(s): Z86.73 - PRSNL HX OF TIA (TIA), AND CEREB INFRC W/O RESID DEFICITS Status: Chronic (6) Hypertension Code(s): I10 - ESSENTIAL (PRIMARY) HYPERTENSION Status: Chronic Qualifiers: Hypertension type: essential hypertension Qualified Code(s): I10 - Essential (primary) hypertension - Plan Plan: 82 yo M with hx of colon CA with asymptomatic jaundice and hyperbilirubinemia Painless jaundice, improving - lipase 700s, possibly 2/2 gallstone pancreatitis/choledocholithiasis, though no biliary duct dilatation - RUQ US showed cholelithiasis, gallbladder wall thickening. HIDA negative. -WBC 11, started on zosyn 09/15 -lap lavern with intraoperative cholangiogram showing tapering of distal CBD 09/17 -Gen surg consulted -GI consulted - appreciate further recs -Patient will need colonoscopy in outpatient setting Elevated LFTs, improved -continue to monitor, downtrending along with bilirubin as well -Hepatitis panel negative HTN - BP elevated - will increase home lisinopril dose Macrocytic anemia -stable -B12 low, will start B12 supplement. Also both iron and TIBC low. Hx of CVA -Pt also doesn't remember, no neuro deficits on exam -Start daily ASA - not on statin, ASCVD 30%, will start statin code: full diet: npo dvt ppx: lovenox Dispo: pending workup Addendum - Attending - Attending Attestation Date/Time: 09/18/18 5325 I personally evaluated the patient and discussed the management with Dr. Candelaria I agree with the History, Examination, Assessment and Plan documented above with any addition or exceptions noted below. POD #! 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 Otherwise advance per GS appreciate GI recommendations
[2018-09-18] MEDS: Lisinopril 10 MG TAB PO SCH (07:05)
[2018-09-18] MEDS: Enoxaparin Sodium 40 MG/0.4 ML SYRINGE SC SCH (08:11)
[2018-09-18] MEDS: Cyanocobalamin (Vitamin B-12) 1,000 MCG TAB PO SCH (08:12)
--- NOTE | 2018-09-18 08:53 | OP ---
DATE OF PROCEDURE: 09/17/2018 PREOPERATIVE DIAGNOSES: Cholelithiasis with admission episode of jaundice and pancreatitis. POSTOPERATIVE DIAGNOSIS: Suspected resolved choledocholithiasis. PROCEDURES PERFORMED: Laparoscopic cholecystectomy with intraoperative cholangiogram and percutaneous core needle liver biopsy. ANESTHESIA: General endotracheal. INDICATIONS: The patient is an 82-year-old male. He had a prior midline laparotomy in treatment of a colon cancer. He was admitted to the hospital couple of days ago with a bilirubin of 7 and lipase of 780. His liver functions and pancreatic enzymes have been normalizing for the past couple of days. He is recognized to have cholelithiasis. I recommended a cholecystectomy and cholangiogram. The ultrasound findings were of a normal caliber common bile duct. DESCRIPTION OF PROCEDURE: Informed consent was obtained. The patient was taken to the operating room, where general endotracheal anesthesia was obtained with the patient in supine position. Abdomen was prepped with ChloraPrep and draped in sterile fashion. Local anesthetic was infiltrated using 0.25% Marcaine with epinephrine. A 5-mm right upper quadrant incision was created, and Veress needle was passed through this incision to the peritoneal cavity and pneumoperitoneum was established using carbon dioxide up to pressure of 15 mmHg. A 5-mm trocar port was passed through the same incision. Laparoscopic camera was passed through this port. Under direct vision, two additional 5-mm ports were placed in the usual location in the right upper quadrant. There were extensive adhesions to the anterior abdominal wall in the midline and in the upper abdomen. Fortunately, the vast majority of these could be swept away using blunt dissection. Electrocautery was utilized where necessary to maintain hemostasis. All adhesions were between the omentum and the anterior abdominal wall. The patient, from his prior surgery, had his transverse colon swung down for anastomosis with his rectum. Unfortunately, the proximal transverse colon was relatively dilated and relatively adherent in the right upper quadrant. I was able to place an 11-mm supraumbilical port through an incision along his previous midline incision. Attention was turned to the gallbladder. The gallbladder was difficult to visualize and grasp because of adhesions in the right upper quadrant. I was able to grasp this and began freeing it from the surrounding fatty adhesions. Adhesions to the colon were mobilized, and I was able to move the proximal transverse colon somewhat inferiorly. There were also extensive adhesions involving the duodenum, and these were also carefully taken down. Eventually, I was able to retract the gallbladder in a cephalad direction. Careful dissection was carried out, and I identified the cystic artery first. This was divided between clips, leaving 2 on the side to remain within the abdomen. I then carefully dissected the cystic duct. This was substantially dilated. It was far too large to occlude with a single hemoclip. A ductotomy was created, and a cholangiogram was performed. This revealed the typical serpiginous cystic duct emptying into a large dilated common bile duct. This emptied quickly into the duodenum. There was no evidence of filling defect anywhere in the common duct or back into the hepatic radicles. The cholangiocath was removed, and the duct was clipped distally. The duct was then divided. The clip that was placed was inadequate to achieve appropriate closure, and I therefore placed a single PDS Endoloop around the cystic duct stump as well. The gallbladder was dissected out of the gallbladder fossa uneventfully using electrocautery, and the gallbladder was removed through the supraumbilical port site. There was a single large gallstone, and the incision in the skin and the fascia had to be enlarged substantially to allow gallbladder extraction. The scope was returned to the abdomen. Attention was turned to the liver. I decided to obtain a couple of liver biopsies primarily secondary to his presenting jaundice, although I now at this time felt that this jaundice was likely due to resolving choledocholithiasis. I used the 14-gauge Bard core biopsy needle and obtained two excellent samples from the right lobe of the liver. Hemostasis was maintained on the liver using electrocautery. Of note, the liver did not have a cirrhotic appearance and appeared normal in appearance for a man of his age. All ports and instruments were removed under direct vision. Pneumoperitoneum was carefully evacuated. Additional 0.25% Marcaine with epinephrine was infiltrated at each port site. The fascia at the supraumbilical port site was closed using a series of [id number] sutures of 0 Vicryl. The remainder of that wound was closed in layers with 3-0 and 4-0 Monocryl. The other incisions were closed with 4-0 Monocryl, and Dermabond was placed externally. There were no complications. The patient tolerated the procedure well and was taken to recovery room in stable condition. Job ID: [id number]
[2018-09-18 15:29] LABS: ANA Symphony (Qualitative) Negative (Negative); ANA Symphony (Quantitative) 0.1 Ratio (< 0.7 Negative); EliA Vaculitis New Method **** NEW METHOD ****; Mitochondrial Ab 0.6 U/mL (<4 Negative); dsDNA IgG Antibody 0.6 IU/mL (<10 Negative)
--- NOTE | 2018-09-18 15:36 | PRG ---
DATE OF SERVICE: 09/18/2018 SUBJECTIVE: Mr. Fleming has no abdominal pain. No nausea or vomiting. He is ambulating. No acute complaints at this time. OBJECTIVE: VITAL SIGNS: Temperature 98.0, pulse 61, blood pressure 133/79. GENERAL: He is in no acute distress. Awake and alert. LUNGS: Clear to auscultation bilaterally. HEART: Regular rate and rhythm without murmur. ABDOMEN: Soft, nontender, nondistended. Bowel sounds are present. EXTREMITIES: No lower extremity edema. IMPRESSION: 1. Gallstone pancreatitis, clinically resolved. 2. Cholelithiasis, status post cholecystectomy. 3. Abnormal liver function tests, likely secondary to the prior choledocholithiasis now with a passed stone and clear intraoperative cholangiogram. There was some narrowing or tapering of the bile duct at the head of the pancreas. This is nonspecific, but followup endoscopic ultrasound as an outpatient could evaluate this area to rule out a small mass or lesion that did not show up on the CT scan as the cause of this finding. 4. History of colon cancer and colon polyps. RECOMMENDATIONS: 1. Follow up in GI clinic. We can schedule a referral for outpatient endoscopic ultrasound to evaluate the head of the pancreas. Also, arrange outpatient colonoscopy for surveillance given his previous colon cancer and advanced colon polyps. 2. I discussed this with the patient; however, he seems to have some limited insight and suggest I talk to his daughter. He does not recall his daughter's last name or her phone number. I will obtain this from the chart and give her a call as well. 3. I will sign off for now. Please call if GI can be of assistance. I anticipate Mr. Fleming should be ready to go home later today from a GI standpoint. Job ID: [id number]
[2018-09-18] MEDS: HYDROcodone/Acetaminophen 5/325 mg Tablet PO PRN (19:45)
[2018-09-18] MEDS: Atorvastatin Calcium 40 MG TAB PO SCH (19:45)
[2018-09-19 05:11] LABS: #Eosinphils 0.1 thou/uL (0.0-0.7); #Monocytes 0.7 thou/uL (0.11-0.59); #Neutrophils 6.1 thou/uL (1.40-6.50); %Basophils 0.4 % (0.0-1.0); %Monocytes 8.3 % (0.0-10.0); %Neutrophils 77.3 % (42.0-75.0); Hemoglobin 10.2 g/dL (14.0-18.0); Mean Corpuscular HGB CONC 34.4 g/dL (32.0-36.0); Mean Corpuscular Hemoglobin 34.5 pg (27.0-31.0); Mean Platelet Volume 8.2 fL (7.4-10.4); Platelet Count 202 thou/uL (130-400); RBC Distribution Width 11.6 % (11.5-14.5); Red Blood Cell (RBC) Count 2.96 mill/uL (4.70-6.10); White Blood Cell (WBC) Count 7.8 thou/uL (4.8-10.8)
[2018-09-19] MEDS: Lisinopril 10 MG TAB PO SCH (05:23)
[2018-09-19] MEDS: HYDROcodone/Acetaminophen 5/325 mg Tablet PO PRN (05:24)
[2018-09-19 05:34] LABS: ALT (SGPT) 42 U/L (8-55); AST (SGOT) 19 U/L (5-34); Albumin 2.9 g/dL (3.4-4.8); Alkaline Phosphatase 294 U/L (40-150); Anion Gap 12 mmol/L (10-20); BUN (Urea Nitrogen) 18 mg/dL (8.4-25.7); Bilirubin, Total 1.2 mg/dL (0.2-1.2); Calc. Creatinine Clearance 89 mL/min (70-130); Calcium 8.2 mg/dL (7.8-10.44); Carbon Dioxide 22 mmol/L (23-31); Chloride 108 mmol/L (98-107); Estimated GFR-MDRD Greater than 90; Globulin 2.5 g/dL (2.4-3.5); Glucose 191 mg/dL (83-110); Potassium 3.6 mmol/L (3.5-5.1); Protein, Total 5.4 g/dL (5.8-8.1); Sodium 138 mmol/L (136-145)
--- NOTE | 2018-09-19 06:05 | PDOC.FM ---
- Subjective Subjective: Mr. Fleming has no complaints this morning. Feeling well with minimal abdominal incision discomfort and ready to go home. - Objective MAR Reviewed: Yes Vital Signs & Weight: Vital Signs (12 hours) Temp Pulse Resp BP BP Pulse Ox 09/19/18 05:23 167/68 H 09/19/18 05:10 97.7 F 72 18 167/68 H 97 09/19/18 01:00 98.2 F 66 18 158/65 H 97 09/18/18 20:00 98 Weight Weight 82 kg I&O: 09/17/18 09/18/18 09/19/18 06:59 06:59 06:59 Intake Total 163 158 7081 Balance 715 724 1154 Result Diagrams: 09/19/18 04:33 09/19/18 04:33 Phys Exam - Physical Examination Constitutional: NAD Respiratory: clear to auscultation bilateral Cardiovascular: RRR Gastrointestinal: soft, non-tender, no distention, positive bowel sounds incisions healing well Musculoskeletal: no edema Neurological: non-focal Psychiatric: normal affect Skin: normal turgor Deviation from normal: jaundice improved Dx/Plan (1) Jaundice Code(s): R17 - UNSPECIFIED JAUNDICE Status: Acute (2) Cholelithiasis Code(s): K80.20 - CALCULUS OF GALLBLADDER W/O CHOLECYSTITIS W/O OBSTRUCTION Status: Acute Qualifiers: Cholangitis acuity: unspecified acuity Biliary obstruction: without biliary obstruction (3) History of colon cancer Code(s): Z85.038 - PERSONAL HISTORY OF MALIGNANT NEOPLASM OF LARGE INTESTINE Status: Acute (4) Hyperbilirubinemia Code(s): E80.6 - OTHER DISORDERS OF BILIRUBIN METABOLISM Status: Acute (5) History of CVA (cerebrovascular accident) Code(s): Z86.73 - PRSNL HX OF TIA (TIA), AND CEREB INFRC W/O RESID DEFICITS Status: Chronic (6) Hypertension Code(s): I10 - ESSENTIAL (PRIMARY) HYPERTENSION Status: Chronic Qualifiers: Hypertension type: essential hypertension Qualified Code(s): I10 - Essential (primary) hypertension - Plan Plan: 82 yo M with hx of colon CA with asymptomatic jaundice and hyperbilirubinemia Painless jaundice, improving - lipase 700s, 2/2 gallstone pancreatitis/choledocholithiasis, though no biliary duct dilatation - RUQ US showed cholelithiasis, gallbladder wall thickening. HIDA negative. -WBC 11, started on zosyn 09/15 -lap lavern with intraoperative cholangiogram showing tapering of distal CBD 09/17 -Gen surg consulted -GI consulted -okay for discharge with outpatient GI follow up -Patient will need colonoscopy, ERCP in outpatient setting Elevated LFTs, improved -continue to monitor, downtrending along with bilirubin as well -Hepatitis panel negative HTN - BP elevated - will increase home lisinopril dose Macrocytic anemia -stable -B12 low, will start B12 supplement. Also both iron and TIBC low. Hx of CVA -Pt also doesn't remember, no neuro deficits on exam -Start daily ASA - not on statin, ASCVD 30%, will start statin code: full diet: npo dvt ppx: lovenox Dispo: discharge today Addendum - Attending - Attending Attestation Date/Time: 09/19/18 5689 I personally evaluated the patient and discussed the management with Dr. Candelaria I agree with the History, Examination, Assessment and Plan documented above with any addition or exceptions noted below. Post operative continues to do well ok dismissal further outpatient GI consideration and ERCP with brushing, biopsy.
[2018-09-19 07:38] VITALS: BP 155/65; TEMP 97.6
[2018-09-19] MEDS: Enoxaparin Sodium 40 MG/0.4 ML SYRINGE SC SCH (08:20)
[2018-09-19] MEDS: Cyanocobalamin (Vitamin B-12) 1,000 MCG TAB PO SCH (08:21)
[2018-09-19] MEDS ORDERED: Magnesium Citrate 300 ML BOT PO SCH (15:30)
--- NOTE | 2018-09-21 15:31 | EKG ---
Test Reason : Blood Pressure : / mmHG Vent. Rate : 070 BPM Atrial Rate : 070 BPM P-R Int : 162 ms QRS Dur : 088 ms QT Int : 392 ms P-R-T Axes : 061 055 053 degrees QTc Int : 423 ms Normal sinus rhythm Minimal voltage criteria for LVH, may be normal variant Borderline ECG Confirmed by FILOMENA ZIMMER ([id number]), supervising editor trailer PAULETTE CHILD ([id number]) on 09/21/2018 3:30:42 PM Referred By: Confirmed By:FILOMENA ZIMMER
== END 2018-09-19 17:25 | disposition home or self-care (01) | DRG 417 ==
LOC: ERS 12:13 → T4-A 16:00
PROVIDERS: ADMIT Family Medicine; ATTEND Family Medicine
PROC: BF10YZZ Fluoroscopy of Bile Ducts using Other Contrast (ICD-10-PCS; principal; 2018-09-17)
PROC: 0FT44ZZ Resection of Gallbladder, Percutaneous Endoscopic Approach (ICD-10-PCS; 2018-09-17)
PROC: 0FB13ZX Excision of Right Lobe Liver, Percutaneous Approach, Diagnostic (ICD-10-PCS; 2018-09-17)
DX: K80.20 Calculus of gallbladder without cholecystitis without obstruction (principal); K85.10 Biliary acute pancreatitis without necrosis or infection; E03.9 Hypothyroidism, unspecified; D53.9 Nutritional anemia, unspecified; Z86.73 Personal history of transient ischemic attack (TIA), and cerebral infarction without residual deficits; Z85.038 Personal history of other malignant neoplasm of large intestine; Z79.899 Other long term (current) drug therapy; Z90.49 Acquired absence of other specified parts of digestive tract
CPT/HCPCS: 36415; 47532; 74177; 76705; 78227; 80053; 80061; 80306; 80307; 82247; 82378; 82607; 82728; 82746; 83516; 83540; 83550; 83690; 84443; 84484; 85025; 85610; 86038; 86225; 86706; 86803; 87340; 88304; 88307; 88313; 93005; A9537; J1100; J1650; J2001; J2405; J2543; J2704; J3010; J7050; Q9961; Q9966

== ENCOUNTER 2020-05-02 19:10 | Inpatient (IN) | payer MEDICARE ==
[2020-05-02 19:51] LABS: #Lymphocytes 1.5 thou/uL (1.20-3.40); #Monocytes 0.5 thou/uL (0.11-0.59); #Neutrophils 9.1 thou/uL (1.40-6.50); %Eosinophils 0.1 % (0.0-10.0); %Lymphocytes 13.3 % (21.0-51.0); %Monocytes 4.3 % (0.0-10.0); %Neutrophils 82.2 % (42.0-75.0); Hemoglobin 13.5 g/dL (14.0-18.0); Mean Corpuscular HGB CONC 33.2 g/dL (32.0-36.0); Mean Corpuscular Hemoglobin 33.3 pg (27.0-31.0); Mean Platelet Volume 8.7 fL (7.4-10.4); Platelet Count 286 thou/uL (130-400); RBC Distribution Width 12.2 % (11.5-14.5); Red Blood Cell (RBC) Count 4.06 mill/uL (4.70-6.10); White Blood Cell (WBC) Count 11.1 thou/uL (4.8-10.8)
[2020-05-02 20:02] LABS: ALT (SGPT) 8 U/L (8-55); AST (SGOT) 8 U/L (5-34); Alkaline Phosphatase 128 U/L (40-110); Anion Gap 33 mmol/L (10-20); BUN (Urea Nitrogen) 44 mg/dL (8.4-25.7); Bilirubin, Total 1.3 mg/dL (0.2-1.2); CK (CPK) 26 U/L (30-200); Calc. Creatinine Clearance 0 mL/min (70-130); Calcium 9.7 mg/dL (7.8-10.44); Carbon Dioxide 17 mmol/L (23-31); Chloride 104 mmol/L (98-107); Estimated GFR-MDRD 38; Globulin 3.2 g/dL (2.4-3.5); Potassium 4.3 mmol/L (3.5-5.1); Protein, Total 7.2 g/dL (5.8-8.1); Sodium 150 mmol/L (136-145)
[2020-05-02 20:09] LABS: Glucose 569 mg/dL (83-110)
--- NOTE | 2020-05-02 20:23 | CT ---
Head CT without contrast 05/02/2020: COMPARISON: 07/10/2007 HISTORY: Altered mental status, weakness, fall TECHNIQUE: Axial CT imaging at 5 mm intervals from vertex through skull base without contrast FINDINGS: The visualized paranasal sinuses and mastoid air cells are well-aerated. No displaced linda rial fracture. No intracranial hemorrhage, midline shift, or mass effect. IMPRESSION: No intracranial hemorrhage or displaced calvarial fracture.
[2020-05-02 20:25] LABS: CKMB 0.9 ng/mL (0-6.6)
--- NOTE | 2020-05-02 20:25 | RAD ---
Frontal radiograph pelvis: 05/02/2020 COMPARISON: None HISTORY: Generalized weakness FINDINGS: There is atherosclerotic calcification overlying the pelvis and proximal femora. No widenin g of the sacroiliac joints or pubic symphysis. The femoral heads project normally over the respective acetabulum with no displaced fracture or dislocation. There is multilevel lower lumbar spi ne facet hypertrophy. There is prominent bilateral hip degenerative change. IMPRESSION: Chronic findings as above. No displaced fracture seen. If there is clinical concern for a radio occult fracture, CT recommended.
--- NOTE | 2020-05-02 20:29 | RAD ---
Portable frontal chest radiograph: 05/02/2020 COMPARISON: 11/26/2015 HISTORY: Generalized weakness with diarrhea FINDINGS: Increased linear interstitial density noted as before. Elevation of the right humeral head suggests rotator cuff tear. No pneumothorax or pleural fluid. No focal consolidation or alveolar edema. Mild hazy increased density in the medial lung bases, left greater than right, likely on the b asis of vascular prominence. Mild infiltrate is less likely. There is an area of rounded 5 cm lucency overlying the humeral head on the right which could signify a lucent lesion or artifact. IMPRESSION: Portable chest radiograph as detailed above. No focal consolidation. Lucency overlying th e humeral head which may signify an underlying lucent lesion or artifact. Nonemergent follow-up radiographs of the right shoulder advised. CODE T
[2020-05-02] MEDS ORDERED: INSULIN REGULAR IN 0.9 % NACL 100 UNIT/100 ML BAG ONE (20:44)
--- NOTE | 2020-05-02 20:55 | CT ---
CERVICAL SPINE CT SCAN WITHOUT IV CONTRAST: History: Weakness, sore throat, injury from a fall. FINDINGS: Very severe generalized disc osteophytosis and facet arthrosis. Prominent thickening of the anterior and longitudinal ligament with some ossification from C4 through C7. There is exaggerated kyphosis of the lower cervical spine. Mild anterolisthesis of C5 on C6 and retrolisthesis of C6 on C7. In the ri ght side of the C6 vertebral body there is an approximately 0.7 cm diameter fairly circumscribed lyti c bone defect. No evidence for acute fracture or facet dislocation. IMPRESSION: 1. Severely exaggerated kyphosis. 2. Severe spondylosis with marked thickening and ossification of the anterior and longitudinal ligame nt. 3. No evidence for acute fracture or facet dislocation. 4. Approximately 0.7 cm diameter fairly circumscribed lytic bone lesion in the right lateral aspect o f the C6 vertebral body. POS: RRE
[2020-05-02 21:30] LABS: Bacteria/HPF None Seen HPF (None Seen); Bilirubin Negative (Negative); Blood, Urine Negative (Negative); Clarity Clear (Clear); Glucose, Urine (Dipstick) Greater than 1000 mg/dL (Negative); Ketone, Urine 80 mg/dL (Negative); Leukocyte 75 Leu/uL (Negative); Nitrite Negative (Negative); Protein, Urine (Dipstick) 10 mg/dL (Neg-Trace); RBC/HPF 0-3 HPF (0-3); Specific Gravity, Urine 1.032 (1.002-1.036); Squamous Epithelial 0-3 HPF (0-3); Urobilinogen Normal mg/dL (Less than 2); pH, Urine 5.5 (5.0-9.0)
[2020-05-02] MEDS ORDERED: NS 0.9% w/ 20 MEQ KCL 1,000 ML/1,000 ML BAG IV PRN (21:30)
[2020-05-02] MEDS ORDERED: Aspirin Chewable 81 MG TAB ONE (22:48)
[2020-05-02 23:43] LABS: Troponin I 0.045 ng/mL (< 0.028)
[2020-05-03 00:42] VITALS: BMI 19.9
[2020-05-03] MEDS ORDERED: NS 0.9% w/ 20 MEQ KCL 1,000 ML IV PRN ×2 (00:42)
[2020-05-03] MEDS ORDERED: Acetaminophen 325 MG TAB PO PRN (00:42)
[2020-05-03] MEDS ORDERED: Electrolyte Replacement Protoc 1 EACH EACH IVPB PRN (00:42)
[2020-05-03] MEDS ORDERED: Ondansetron PF 4 MG/2 ML Vial IVP PRN (00:42)
[2020-05-03] MEDS ORDERED: Calcium Carbonate 500 MG ChewTAB PO PRN (00:42)
[2020-05-03] MEDS ORDERED: Dextrose 5 %-0.45 % NaCl 1,000 ML IV PRN (00:42)
[2020-05-03] MEDS ORDERED: Ondansetron ODT 4 MG TAB PO PRN (00:42)
[2020-05-03] MEDS ORDERED: Sodium Chloride 0.9% 1,000 ML IV PRN ×4 (00:42)
[2020-05-03] MEDS ORDERED: Acetaminophen 650 MG Suppository PR PRN (00:42)
[2020-05-03] MEDS ORDERED: HUMULIN R 100 UNITS in Sodium Chloride 0.9% 100 ML IVPB SCH (00:45)
--- NOTE | 2020-05-03 00:52 | PDOC.HHP ---
Hospitalist HPI - History of Present Illness fall / dka History of Present Illness: Case of an 84y/o male with a pmhx of colon co s/p colectomy who comes to hospital after having a fall. patient had a trauma work up at the ed and was negative. patient is a very poor historian, he states he went to get some water and fell down, he had no complains. His son was there and helped him up immediately and was brought to hospital for evaluation. Patient does endorse feeling sick for the last several days, with increased thirst and urination. He denies fevers chills chest pain shortness of breath, dysuria or diarrhea. at the ed patient was evaluated and was found to be on DKA, had no hx of DM. hospitalit was called for further evaluation and management Hospitalist ROS - Review of Systems All other systems reviewed; all pertinent +/- noted in HPI/Subj - Medication Medications: Active Medications Generic Name Dose Route Start Last Admin Trade Name Freq PRN Reason Stop Dose Admin Potassium Chloride/Sodium Chloride 1,000 ml in 1,000 mls @ 500 mls/hr 05/02/20 21:30 05/03/20 00:24 Ns 0.9% W/ 20 Meq Kcl IV 1,000 mls .Q2H PRN Administration STEP 2: DKA PROTOCOL Protocol Hospitalist History - Past Surgical History Other Surgical History: colectomy peg placement end reversal amputation l middle finger - Family History Family History: reports: no pertinent history - Social History Smoking Status: Never smoker Alcohol: reports: None Drugs: reports: none - Exam General Appearance: NAD, awake alert Eye: PERRL, anicteric sclera ENT: normocephalic atraumatic, no oropharyngeal lesions, moist mucosa Neck: supple, symmetric, no JVD, no thyromegaly Heart: RRR, no murmur, no gallops, no rubs Respiratory: CTAB, no wheezes, no rales, no ronchi Gastrointestinal: soft, non-tender, non-distended, normal bowel sounds Extremities: no cyanosis, no clubbing, no edema Skin: normal turgor, no lesions, no rashes Neurological: cranial nerve grossly intact, normal sensation to touch, no weakness, no focal deficits Musculoskeletal: normal tone, normal strength, no muscle wasting Psychiatric: normal affect, normal behavior, A&O x 3 Hospitalist Results - Labs Result Diagrams: 05/02/20 19:24 05/03/20 01:59 Lab results: WBC 11.1 thou/uL (4.8-10.8) H 05/02/20 19:24 Hgb 13.5 g/dL (14.0-18.0) L 05/02/20 19:24 Hct 40.7 % (42.0-52.0) L 05/02/20 19:24 MCV 100.0 fL (78.0-98.0) H 05/02/20 19:24 Plt Count 286 thou/uL (130-400) 05/02/20 19:24 Neutrophils % 82.2 % (42.0-75.0) H 05/02/20 19:24 Sodium 150 mmol/L (136-145) H 05/02/20 19:24 Potassium 4.3 mmol/L (3.5-5.1) 05/02/20 19:24 Chloride 104 mmol/L (98-107) 05/02/20 19:24 Carbon Dioxide 17 mmol/L (23-31) L 05/02/20 19:24 BUN 44 mg/dL (8.4-25.7) H 05/02/20 19:24 Creatinine 1.73 mg/dL (0.7-1.3) H 05/02/20 19:24 Glucose 569 mg/dL (83-110) H* 05/02/20 19:24 Calcium 9.7 mg/dL (7.8-10.44) 05/02/20 19:24 Total Bilirubin 1.3 mg/dL (0.2-1.2) H 05/02/20 19:24 AST 8 U/L (5-34) 05/02/20 19:24 ALT 8 U/L (8-55) 05/02/20 19:24 Alkaline Phosphatase 128 U/L (40-110) H 05/02/20 19:24 Creatine Kinase 26 U/L (30-200) L 05/02/20 19:24 CK-MB (CK-2) 0.9 ng/mL (0-6.6) 05/02/20 19:24 Troponin I 0.045 ng/mL (< 0.028) H 05/02/20 23:12 Serum Total Protein 7.2 g/dL (5.8-8.1) 05/02/20 19:24 Albumin 4.0 g/dL (3.4-4.8) 05/02/20 19:24 Urine Ketones 80 mg/dL (Negative) A 05/02/20 21:04 Urine Blood Negative (Negative) 05/02/20 21:04 Urine Nitrite Negative (Negative) 05/02/20 21:04 Ur Leukocyte Esterase 75 Emanuel/uL (Negative) A 05/02/20 21:04 Urine RBC 0-3 HPF (0-3) 05/02/20 21:04 Urine WBC 7-10 HPF (0-3) A 05/02/20 21:04 Ur Squamous Epith Cells 0-3 HPF (0-3) 05/02/20 21:04 Urine Bacteria None Seen HPF (None Seen) 05/02/20 21:04 Hospitalist H&P A/P - Problem (1) DKA (diabetic ketoacidoses) Code(s): E11.10 - TYPE 2 DIABETES MELLITUS WITH KETOACIDOSIS WITHOUT COMA Status: Acute (2) YINA (acute kidney injury) Code(s): N17.9 - ACUTE KIDNEY FAILURE, UNSPECIFIED Status: Acute (3) History of colon cancer Code(s): Z85.038 - PERSONAL HISTORY OF MALIGNANT NEOPLASM OF LARGE INTESTINE Status: Acute (4) History of CVA (cerebrovascular accident) Code(s): Z86.73 - PRSNL HX OF TIA (TIA), AND CEREB INFRC W/O RESID DEFICITS Status: Chronic (5) Hypertension Code(s): I10 - ESSENTIAL (PRIMARY) HYPERTENSION Status: Chronic Qualifiers: Hypertension type: essential hypertension Qualified Code(s): I10 - Essential (primary) hypertension - Plan Plan: Case of an 84y/o male with the stated pmhx who present with DKA and renal failure DKA - pt w elevated blood sugar, increased anion gap acidosis and ketones in urine consistent with the dx of dka - started on dka insulin drip protocol - monitor electrolites - replaced as needed renal failure - likely secondary to hypovolemia in the setting of dka - will hydrate - f/u creatinine and u/o - renal u/s - hold nephrotoxic medication htn - continue home meds when more stable and renal function improves hx of cva - continue home meds when able to tolerate po
[2020-05-03] MEDS: D5 1/2 NS w/20 mEq KCL 1,000 ML IV PRN ×3 (01:28→08:56)
[2020-05-03 02:27] LABS: Anion Gap 16 mmol/L (10-20); BUN (Urea Nitrogen) 39 mg/dL (8.4-25.7); Calc. Creatinine Clearance 50 mL/min (70-130); Calcium 8.7 mg/dL (7.8-10.44); Carbon Dioxide 21 mmol/L (23-31); Chloride 119 mmol/L (98-107); Estimated GFR-MDRD 64; Glucose 209 mg/dL (83-110); Potassium 3.8 mmol/L (3.5-5.1); Sodium 152 mmol/L (136-145)
[2020-05-03 02:33] LABS: Troponin I 0.053 ng/mL (< 0.028)
[2020-05-03 03:15] LABS: Band 11 % (5-11); Hemoglobin 11.2 g/dL (14.0-18.0); Lymphocytes 10 % (21-51); MDiff Complete? YES; Mean Corpuscular HGB CONC 33.9 g/dL (32.0-36.0); Mean Platelet Volume 8.2 fL (7.4-10.4); Neutrophil 79 % (42-75); Platelet Count 223 thou/uL (130-400); RBC Distribution Width 12.3 % (11.5-14.5); White Blood Cell (WBC) Count 8.8 thou/uL (4.8-10.8)
[2020-05-03 05:23] LABS: Anion Gap 15 mmol/L (10-20); BUN (Urea Nitrogen) 37 mg/dL (8.4-25.7); Calc. Creatinine Clearance 55 mL/min (70-130); Calcium 8.4 mg/dL (7.8-10.44); Carbon Dioxide 22 mmol/L (23-31); Chloride 119 mmol/L (98-107); Estimated GFR-MDRD 71; Glucose 207 mg/dL (83-110); Potassium 3.8 mmol/L (3.5-5.1); Sodium 152 mmol/L (136-145)
[2020-05-03 05:30] LABS: SARS-CoV-2 MS2 Positive; SARS-CoV-2 N Gene Positive; SARS-CoV-2 S Gene Positive; SARS-CoV-2 by NAA DETECTED (NotDetected); SARS-CoV-2 orf1ab Positive
[2020-05-03] MEDS: Enoxaparin Sodium 40 MG/0.4 ML SYRINGE SC SCH (08:55)
[2020-05-03 11:20] LABS: Anion Gap 13 mmol/L (10-20); BUN (Urea Nitrogen) 32 mg/dL (8.4-25.7); Calc. Creatinine Clearance 68 mL/min (70-130); Calcium 8.6 mg/dL (7.8-10.44); Carbon Dioxide 23 mmol/L (23-31); Chloride 118 mmol/L (98-107); Estimated GFR-MDRD Greater than 90; Glucose 130 mg/dL (83-110); Potassium 3.6 mmol/L (3.5-5.1); Sodium 150 mmol/L (136-145)
--- NOTE | 2020-05-03 11:30 | ULT ---
Renal sonogram HISTORY: Renal failure. FINDINGS: The right kidney measures up to 11.8 cm length. A 1.7 cm cyst is present at the superior po le. No hydronephrosis or solid mass. Urinary bladder has a normal appearance with bilateral ureteral jets. Left kidney measures up to 10.8 cm. Cortical cyst at the central portion is 1.9 cm greatest diameter. No solid mass or hydronephrosis. IMPRESSION : No evidence of urinary tract obstruction or other significant abnormality.
[2020-05-03] MEDS ORDERED: Dextrose 5% in Water 1,000 ML IV PRN (12:33)
[2020-05-03] MEDS ORDERED: Dextrose 50% Abboject 50 ML SYRINGE SLOW IVP PRN (12:33)
[2020-05-03] MEDS ORDERED: Insulin Glargine 7 UNITS in Pre-Filled Syringe SC SCH (12:45)
[2020-05-03 17:02] LABS: Hemoglobin A1c 11.5 % (4.0-6.0)
[2020-05-03 17:24] LABS: Anion Gap 10 mmol/L (10-20); BUN (Urea Nitrogen) 27 mg/dL (8.4-25.7); Calc. Creatinine Clearance 68 mL/min (70-130); Calcium 8.3 mg/dL (7.8-10.44); Carbon Dioxide 25 mmol/L (23-31); Chloride 117 mmol/L (98-107); Estimated GFR-MDRD Greater than 90; Glucose 195 mg/dL (83-110); Potassium 4.1 mmol/L (3.5-5.1); Sodium 148 mmol/L (136-145)
[2020-05-03 17:42] LABS: Thyroid Stimulating Hormone 1.9032 uIU/mL (0.35-4.94)
[2020-05-03] MEDS: HumaLOG 300 UNITS/3 ML VIAL SC PRN (18:17)
--- NOTE | 2020-05-03 18:55 | RAD ---
RADIOGRAPH RIGHT SHOULDER THREE VIEWS: Date: 05-02-2020 History: 84-year-old male with lucent lesion in the proximal right humerus noted on chest radiograph earlier t gregg. FINDINGS: There is persistence of the approximately 5 cm lucency at the right proximal humeral metaphysis, invo lving the cervical neck of the humerus, at least on one of the views. Severe DJD at AC joint. Moderate to severe DJD at glenohumeral joint. High riding humeral head with pseudo articulation against the acromion, suggestive of long-term chron ic rotator cuff tear. IMPRESSION: 1. Questionable osteolytic lesion persists in the proximal right humerus. Further evaluation wit h noncontrast CT of the right shoulder should be considered on an elective, non-emergent basis. 2. Signs of chronic right rotator cuff tear. 3. 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 POS: JIN
[2020-05-04] MEDS: HumaLOG 300 UNITS/3 ML VIAL SC PRN ×3 (04:59→17:31)
[2020-05-04 07:13] LABS: Anion Gap 13 mmol/L (10-20); BUN (Urea Nitrogen) 22 mg/dL (8.4-25.7); Calc. Creatinine Clearance 68 mL/min (70-130); Calcium 8.5 mg/dL (7.8-10.44); Carbon Dioxide 24 mmol/L (23-31); Chloride 115 mmol/L (98-107); Estimated GFR-MDRD Greater than 90; Glucose 267 mg/dL (83-110); Potassium 4.2 mmol/L (3.5-5.1); Sodium 148 mmol/L (136-145)
[2020-05-04] MEDS: Enoxaparin Sodium 40 MG/0.4 ML SYRINGE SC SCH (08:38)
[2020-05-04] MEDS ORDERED: Cyanocobalamin 1000 MCG/ML VIAL IM SCH (08:45)
[2020-05-04] MEDS ORDERED: metFORMIN 500 MG TAB PO SCH (09:15)
[2020-05-04] MEDS: Insulin Glargine 6 UNITS in Pre-Filled Syringe 1 EACH SC SCH (09:44)
[2020-05-04] MEDS ORDERED: Sodium Chloride 0.45% 1,000 ML IV SCH (16:30)
[2020-05-04] MEDS: metFORMIN 500 MG TAB PO SCH (17:11)
--- NOTE | 2020-05-04 17:23 | PDOC.HOSPP ---
- Subjective Encounter Date: 05/04/20 Encounter Time: 13:00 Subjective: F/u: DKA THe patient has a mild dry cough. He complains of some pain from sitting in bed, but otherwise has no other complaints - Objective Vital Signs & Weight: Vital Signs (12 hours) Temp Pulse Resp BP Pulse Ox 05/04/20 13:49 150/77 H 05/04/20 08:00 98.1 F 76 18 180/77 H 100 Weight Weight 155 lb Most Recent Monitor Data Heart Rate from ECG 64 NIBP 154/68 NIBP BP-Mean 96 Respiration from ECG 24 SpO2 100 I&O: 05/03/20 05/04/20 05/05/20 06:59 06:59 06:59 Intake Total 1792 2680 Output Total 200 Balance 1592 2680 Result Diagrams: 05/03/20 01:59 05/04/20 06:28 Additional Labs: Accuchecks 05/04/20 05/03/20 05/03/20 04:40 19:44 17:31 POC Glucose 272 H 189 H 176 H Hospitalist ROS - Review of Systems Constitutional: denies: fever, chills - Medication Medications: Active Medications Generic Name Dose Route Start Last Admin Trade Name Freq PRN Reason Stop Dose Admin Enoxaparin Sodium 40 mg 05/03/20 09:00 05/04/20 08:38 Enoxaparin Sodium 40 Mg/0.4 Ml Syringe SC 40 mg 0900 EZEQUIEL Administration Insulin Human Regular 100 101 mls @ 0 mls/hr 05/03/20 00:45 05/03/20 05:19 units/ Sodium Chloride IVPB 101 mls INF EZEQUIEL Administration Protocol Titrate Insulin Glargine 6 units/ 0.06 mls @ 0 mls/hr 05/04/20 09:00 05/04/20 09:44 Miscellaneous Medication SC 0.06 mls QAM EZEQUIEL Administration Insulin Human Lispro 0 units 05/03/20 12:33 05/04/20 12:47 Humalog 300 Units/3 Ml Vial SC 3 units .MILD SLIDING SCALE PRN Administration Mild Correctional Scale - Exam General Appearance: NAD, awake alert Eye: PERRL, anicteric sclera ENT: normocephalic atraumatic, no oropharyngeal lesions Neck: no JVD Heart: RRR, no murmur, no gallops, no rubs Respiratory: CTAB, no wheezes, no rales, no ronchi Gastrointestinal: soft, non-tender, non-distended, no splenomegaly Extremities: no cyanosis, no clubbing, no edema Skin: normal turgor, no lesions, no rashes Hosp A/P - Plan This is an 84 year old male with no PMH who presented with DKA, found to have COVID as well DKA - resolved - started lantus 6 units qam with improvement in blood sugars. Will add lantus 6 units qhs - continue metformin. A1C is 11.6. Ordered dietary consut Hypernatremia - sodium 148, ordered 1/2 NS, will repeat BMP Tomorrow COVID + - on room air, saturating well. PT has been ordered Hypertension - BP 170 to 180. Will decrease rate of IV fluid to 75/hour - will add lisinopril 5 mg daily Dispo: pending resolution of hypernatremia
[2020-05-04] MEDS: Sodium Chloride 0.45% 1,000 ML IV SCH (19:35)
[2020-05-04] MEDS ORDERED: Insulin Glargine 6 UNITS in Pre-Filled Syringe 1 EACH SC SCH (21:00)
[2020-05-05] MEDS: HumaLOG 300 UNITS/3 ML VIAL SC PRN (05:34)
[2020-05-05] MEDS: Sodium Chloride 0.45% 1,000 ML IV SCH (05:34)
[2020-05-05 08:08] LABS: Anion Gap 11 mmol/L (10-20); BUN (Urea Nitrogen) 18 mg/dL (8.4-25.7); Calc. Creatinine Clearance 82 mL/min (70-130); Carbon Dioxide 24 mmol/L (23-31); Chloride 112 mmol/L (98-107); Estimated GFR-MDRD Greater than 90; Glucose 172 mg/dL (83-110); Potassium 3.3 mmol/L (3.5-5.1); Sodium 144 mmol/L (136-145)
[2020-05-05] MEDS ORDERED: Potassium Chloride 20 MEQ TAB PO SCH (08:45)
[2020-05-05] MEDS: metFORMIN 500 MG TAB PO SCH (08:47)
[2020-05-05] MEDS: Enoxaparin Sodium 40 MG/0.4 ML SYRINGE SC SCH (08:48)
[2020-05-05] MEDS ORDERED: Lisinopril 2.5 MG TAB PO SCH (09:00)
[2020-05-05] MEDS: Insulin Glargine 6 UNITS in Pre-Filled Syringe 1 EACH SC SCH (09:50)
[2020-05-05 13:25] VITALS: BP 165/65; TEMP 97.5
--- NOTE | 2020-05-05 22:09 | PDOC.DS.DS ---
Provider - Provider Date of Admission: 05/02/20 22:56 Date of Discharge: 05/05/20 Admitting Provider: Mike Wetzel Primary Care Physician: [facility] Course - Hospital Course Hospital Course: Discharge Diagnoses: 1. DKA 2. COVID+ 3. Vitamin B12 deficiency anemia 4. Osteolytic lesion of right shoulder 5. Hypertension Brief HPI: THis is an 84 year old male with unknown past medical history who presented after a fall. He was incidentally found to be in DKA. The patient was started on an insulin drip and admitted for further workup: Hospital Course: 1. DKA: the patient was admitted to the [facility]. His DKA resolved with initiation of insulin drip. He was started on metformin and lantus 6 units SC BID. His hemoglobin A1C was 11. He was educated on a diabetic diet and seen by the sox analyst. He was advised to follow up with his primary care doctor and check his fingersticks before meals and before bedtime. He was discharged with a sliding scale as well 2. Osteolytic lesion right shoulder: This was incidentally noted on CT cervical spine. Shoulder Xray confirmed these findings. Consider CT of the right shoulder as an outpatient. The patient denied any shoulder pain 3. COVID +: the patient incidentally tested positive for COVID. He remained on room air for two days and had only a mild cough. Chest X ray showed no pneumonia. He was advised to isolate for one more week. He was seen by physical therapy and was thought to be independent. Daughter requested home PT/OT and nursing which was set up on discharge. 4. Vitamin B12 deficiency anemia: the patient's vitamin B12 was 13.5 which decreased to 11.2. MCV was 100. Vitamin B12 level was 124. He was given an injection of IM vitamin B12 in the hospital and discharged on vitamin B12 oral supplements daily. Repeat vitamin B12 levels should be done in 6 weeks. Intrinsic factor antibody was sent which is pending. 5. Hypertension: the patient's blood pressure was 160-170 systolic. He was discharged with lisinopril 5 mg daily given that he is diabetic. Pertinent Studies: CT cervical spine 05/02: severely exaggerated kyphosis. Severe spondylosis with marked thickening of the anterior and longitudinal ligament. 0.7 cm lytic bone lesion in right lateral aspect of C6 vertebral body. Pelvis X ray 05/02 : no displaced fracture Chest X ray 05/02: lucency over humeral head which may signify and underlying lucent lesion CT brain 05/02: no acute hemorrhage Renal ultrasound 05/03: normal Shoulder X ray 05/03 Osteolytic lesion in the right proximal humerus. Chronic right rotator cuff tear. High grade osteoarthrosis of the AC and glenohumeral joint Resuscitation Status: 05/03/20 00:42 Resuscitation Status Routine Resuscitation Status: FULL: Full Resuscitation - Labs Lab Results: 05/03/20 01:59 05/05/20 06:56 Abnormal Lab Results - Last 48 hrs 05/04/20 06:28: Sodium 148 H, Chloride 115 H 05/05/20 06:56: Potassium 3.3 L, Chloride 112 H, Creatinine 0.67 L - Physical Exam Vitals: Vital Signs (12 hours) Temp Pulse Resp BP Pulse Ox 05/05/20 12:00 97.5 F L 75 18 165/65 H 98 Weight Weight 155 lb Most Recent Monitor Data Heart Rate from ECG 64 NIBP 154/68 NIBP BP-Mean 96 Respiration from ECG 24 SpO2 100 Physical Exam: The patient was seen and examined on the day of discharge. General : patient alert, awake, oriented times three CVS: RRR, no murmurs, rubs, gallops Lungs: CTAB Abdomen: +BS, soft, nontender, nondistended Extremities: no edema Problem - Time spent with Patient (mins): 35 Plan - Discharge Medications Prescriptions: metFORMIN [Glucophage] 500 mg PO BID- #60 tab Insulin Lispro [Humalog Kwikpen U-100] 100 unit SQ ACHS #120 insuln.pen Lancets 1 each SC ACHS #120 each Insulin Glargine [Lantus Vial] 6 units SC BID #60 vial Lisinopril 5 mg PO DAILY #30 tablet Blood-Glucose Meter [Test N'go Glucose Meter] 1 each MC ASDIR #1 each Blood Sugar Diagnostic [Test Strips] 1 each FS ACHS #120 strip Cyanocobalamin (Vitamin B-12) [Vitamin B-12] 2,000 mcg PO DAILY #30 tablet Home Medications: Medication Instructions Recorded Confirmed Type Blood Sugar Diagnostic [Test 1 each FS ACHS #120 strip 05/05/20 Rx Strips] Blood-Glucose Meter [Test N'go 1 each ASDIR #1 each 05/05/20 Rx Glucose Meter] Cyanocobalamin (Vitamin B-12) 2,000 mcg PO DAILY #30 tablet 05/05/20 Rx [Vitamin B-12] Insulin Glargine [Lantus Vial] 6 units SC BID #60 vial 05/05/20 Rx Insulin Lispro [Humalog Kwikpen 100 unit SQ ACHS #120 insuln.pen 05/05/20 Rx U-100] Lancets 1 each SC ACHS #120 each 05/05/20 Rx Lisinopril 5 mg PO DAILY #30 tablet 05/05/20 Rx metFORMIN [Glucophage] 500 mg PO BID-WM #60 tab 05/05/20 Rx Allergies: No Known Drug Allergies Allergy (Verified 11/26/15 15:29) - Discharge Instructions Activity:: Activity as Tolerated Nourishment:: Diabetic Diet - Follow up Plan Referrals: [facility] [Outside] [facility] [Primary Care Provider] - 7 Days Disposition: HOME Quality - Care Measures CORE MEASURES:: N/A
== END 2020-05-05 16:07 | disposition home or self-care (01) | DRG 637 ==
LOC: ERS 19:10 → IMCU/EMU 22:56 → T4-B 05-03 23:59
PROVIDERS: ADMIT Internal Medicine; ATTEND Internal Medicine
PROC: 8E0ZXY6 Isolation (ICD-10-PCS; principal; 2020-05-02)
DX: E11.10 Type 2 diabetes mellitus with ketoacidosis without coma (principal); U07.1 COVID-19; N17.9 Acute kidney failure, unspecified; E87.0 Hyperosmolality and hypernatremia; I10 Essential (primary) hypertension; E86.1 Hypovolemia; M89.511 Osteolysis, right shoulder; E53.8 Deficiency of other specified B group vitamins; Z90.49 Acquired absence of other specified parts of digestive tract; Z85.038 Personal history of other malignant neoplasm of large intestine; Z86.73 Personal history of transient ischemic attack (TIA), and cerebral infarction without residual deficits
CPT/HCPCS: 36415; 36416; 70450; 71045; 72125; 72170; 76770; 80048; 80053; 81003; 81015; 82010; 82550; 82553; 82607; 82746; 83036; 84443; 84484; 85007; 85025; 85027; 86340; 87635; 93005; 96365; 96366; 96368; J1650; J1815; J3480; J3490; U0003

== ENCOUNTER 2020-05-13 10:23 | Inpatient (IN) | payer MEDICARE ==
[2020-05-13 11:07] LABS: #Monocytes 0.5 thou/uL (0.11-0.59); %Basophils 0.1 % (0.0-1.0); %Eosinophils 0.3 % (0.0-10.0); %Lymphocytes 10.6 % (21.0-51.0); %Monocytes 2.8 % (0.0-10.0); %Neutrophils 86.3 % (42.0-75.0); Hemoglobin 13.5 g/dL (14.0-18.0); Mean Corpuscular HGB CONC 35.5 g/dL (32.0-36.0); Mean Corpuscular Hemoglobin 34.3 pg (27.0-31.0); Mean Corpuscular Volume 96.6 fL (78.0-98.0); Mean Platelet Volume 8.1 fL (7.4-10.4); Platelet Count 432 thou/uL (130-400); RBC Distribution Width 13.3 % (11.5-14.5); Red Blood Cell (RBC) Count 3.95 mill/uL (4.70-6.10); White Blood Cell (WBC) Count 18.5 thou/uL (4.8-10.8)
--- NOTE | 2020-05-13 11:19 | RAD ---
PORTABLE CHEST 1 VIEW: DATE: 05/13/2020. TIME: 11:04 AM. HISTORY: Dyspnea, headache, dizziness, loss of appetite. COMPARISON: 05/02/2020. FINDINGS: The heart size is normal. Mild patchy opacities are noted in the lung marin bilaterally. No pneumo thoraces or pleural effusions are seen. There are degenerative changes in the shoulder joints. IMPRESSION: Findings that suggestive of viral pneumonia. POS: AH
[2020-05-13] MEDS ORDERED: cefTRIAXone\\ROCEPHIN 2 GM VIAL ONE (11:27)
[2020-05-13 11:33] LABS: ALT (SGPT) 32 U/L (8-55); AST (SGOT) 27 U/L (5-34); Albumin 3.7 g/dL (3.4-4.8); Alkaline Phosphatase 156 U/L (40-110); Anion Gap 24 mmol/L (10-20); BUN (Urea Nitrogen) 21 mg/dL (8.4-25.7); Bilirubin, Total 1.9 mg/dL (0.2-1.2); Calc. Creatinine Clearance 0 mL/min (70-130); Calcium 9.3 mg/dL (7.8-10.44); Carbon Dioxide 23 mmol/L (23-31); Chloride 102 mmol/L (98-107); Estimated GFR-MDRD 66; Globulin 3.7 g/dL (2.4-3.5); Glucose 211 mg/dL (83-110); Protein, Total 7.4 g/dL (5.8-8.1); Sodium 146 mmol/L (136-145)
[2020-05-13 11:41] LABS: Potassium 2.7 mmol/L (3.5-5.1)
--- NOTE | 2020-05-13 12:37 | CT ---
CT neck soft tissues with contrast: 05/13/2020 HISTORY: 84-year-old male with dysphagia FINDINGS: There is mediastinal gas around the clement, and around the bilateral mainstem bronchi, left worse adore n right. This dissects into the right prevertebral space at the mid thoracic levels. This extends into left hilum, surrounding left proximal bronchi and left hilar central blood vessels. There is a small component of left pneumothorax located laterally in the upper lobe. The subcutaneous emphysema does not dissect into the neck, supraclavicular space or otherwise. Trachea and bilateral mainstem bronchi are widely patent and clear. There are subpleural airspace opacities and bilateral posterior consolidations, left greater than rig ht, incompletely imaged. The nasopharyngeal, oropharyngeal, and laryngeal airways are dilated. No soft tissue mass or high-gra de edema involving the pharyngeal mucosal space. No cervical lymphadenopathy. No thyromegaly. Heavy atherosclerotic calcification of bilateral carotid bifurcations causing stenosis, which is pote ntially high-grade, especially on the left, incompletely imaged. Severe bilateral facet DJD at upper and mid cervical levels. Otherwise, no other significant pathology identified involving parapharyngeal, retoucher, parotid, s ubmandibular, retropharyngeal, or posterior cervical, spaces. Total preservation of right maxillary sinus. There is ossification of the anterior longitudinal ligament contiguously causing fusion, from C5-6 th rough all visualized upper and mid thoracic levels, consistent with DISH. This is confluent with bulky confluent bridging osteophytes protruding the prevertebral space from C5-6 through C7-T1. This chronically mildly anteriorly displaces and compresses the upper esophagus and cricopharyngeus musculature. However, this bulky osteophytosis is smooth rather than irregular and jagged, and theref ore would not necessarily cause dysphagia, and definitely not acute dysphagia. IMPRESSION: 1.) Pneumomediastinum. 2) small left pneumothorax. 3.) Bilateral pulmonary infiltrates. 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
[2020-05-13] MEDS ORDERED: Azithromycin 500 MG VIAL ONE (12:45)
[2020-05-13] MEDS ORDERED: NS 0.9% w/ 20 MEQ KCL 1,000 ML/1,000 ML BAG IV SCH (12:45)
[2020-05-13 13:35] LABS: Bilirubin Negative (Negative); Blood, Urine Negative (Negative); Clarity Clear (Clear); Glucose, Urine (Dipstick) Normal (Negative); Ketone, Urine 20 mg/dL (Negative); Leukocyte Negative Leu/uL (Negative); Nitrite Negative (Negative); Protein, Urine (Dipstick) 20 mg/dL (Neg-Trace); Specific Gravity, Urine 1.028 (1.002-1.036)
[2020-05-13] MEDS ORDERED: Dexamethasone 10 MG/ML VIAL ONE (13:37)
[2020-05-13] MEDS ORDERED: Dextrose 50% Abboject 50 ML SYRINGE SLOW IVP PRN (13:47)
[2020-05-13] MEDS ORDERED: Acetaminophen 650 MG Suppository PR PRN (13:47)
[2020-05-13] MEDS ORDERED: Dextrose 5% in Water 1,000 ML IV PRN (13:47)
[2020-05-13] MEDS ORDERED: Ondansetron ODT 4 MG TAB PO PRN (13:47)
[2020-05-13] MEDS ORDERED: Guaifenesin DM 100-10/5 ML UDCUP PO PRN (13:47)
[2020-05-13] MEDS ORDERED: Acetaminophen 325 MG TAB PO PRN (13:47)
[2020-05-13] MEDS ORDERED: Ondansetron PF 4 MG/2 ML Vial IVP PRN (13:47)
[2020-05-13] MEDS ORDERED: HumaLOG 300 UNITS/3 ML VIAL SC PRN ×2 (13:50)
[2020-05-13] MEDS ORDERED: Potassium Chloride 20 MEQ/100 ML PREMIX BAG ONE (14:03)
--- NOTE | 2020-05-13 14:08 | PDOC.FPRHP ---
- History of Present Illness Chief Complaint: dyspnea History of Present Illness: This pleasant 84-yo-M recently hospitalized and discharged on 05/05 for fall and new diagnosis of diabetes found to be in DKA. He was incidentally Covid+ on 05/02 on that admission and had only a mild cough at that time. Patient established care w/ Dr. Hodges of [facility] today; and in the office, his BP was 80/60 and HR 120. He was then sent to the ER. In the ER, Patient is a poor historian and tells me to call his daughter for more information. His daughter tells me he has been having some dyspnea, but she is more concerned with his trouble swallowing lately. She is concerned he has lost a lot of weight and has no appetite. 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 ED Course: In ED, given azithromycin, ceftriaxone, potassium in NS at 150mL/hr, dexamethasone, 1L NS. Placed under bear hugger for hypothermia. - Allergies/Adverse Reactions Allergies Allergy/AdvReac Type Severity Reaction Status Date / Time No Known Drug Allergies Allergy Verified 05/13/20 19:55 - Home Medications Medication Instructions Recorded Confirmed Type Blood Sugar Diagnostic [Test 1 each FS ACHS #120 strip 05/05/20 05/13/20 Rx Strips] Blood-Glucose Meter [Test N'go 1 each MC ASDIR #1 each 05/05/20 05/13/20 Rx Glucose Meter] Lancets 1 each SC ACHS #120 each 05/05/20 05/13/20 Rx Lisinopril 5 mg PO DAILY #30 tablet 05/05/20 05/13/20 Rx metFORMIN [Glucophage] 500 mg PO BID-WM #60 tab 05/05/20 05/13/20 Rx Insulin Lispro [Humalog Kwikpen 0 units SC ACHS PRN MDD 24 units 05/13/20 05/13/20 History U-100] - History PMHx: type 2 diabetes presented in DKA several weeks ago, HTN, colon cancer s/p resection, hypothyroidism (not treated), vitamin B12 deficiency PSHx: - colon cancer resection - amputation left middle finger - PEG tube placement and removal 2/2 colon cancer FHx: noncontributory Social: - denies smoking, drinking, illicit drugs. - Lives with his only daughter, Chloe. - Review of Systems ROS unobtainable: due to mental status - Vital signs Initial vitals in ER: BP: 94/50, MAP: 63, Pulse: 107, Resp: 21, Pain: 0, O2 sat: 76 on (Room Air), Time: 05/13/2020 10:25. Vitals on my examination: BP: 114/55, Pulse: 88, Resp: 19, Temp: 97.7 (Oral), Pain: 0, O2 sat: 100 on (Room Air), Time: 05/13/2020 13:58. - Physical Exam Constitutional: NAD, awake, alert and oriented (thin body habitus) HEENT: normocephalic and atraumatic, no scleral icterus -HEENT: very hard of hearing, dry mucous membranes Neck: trachea midline, no LAD, no JVD, no thyromegaly Chest: no-tender to palpation Heart: RRR, normal S1/S2, no murmurs/rubs/gallops Lungs: good air movement, no wheezing, other (no chest wall crepitus) -Lungs: diminished sounds over RUL and all left lung marin Abdomen: soft, non-tender, no masses/distention Musculoskeletal: normal tone Neurological: no focal deficit, CN II-XII intact, normal sensation, other (strength 5/5 in upper/lower extremities b/l) Skin: no rash/lesions Heme/Lymphatic: no unusual bruising or bleeding, no purpura Psychiatric: normal mood and affect, other (poor memory) FMR H&P: Results - Labs Result Diagrams: 05/14/20 05:08 05/14/20 05:08 Lab results: WBC 18.5 thou/uL (4.8-10.8) H 05/13/20 10:55 Hgb 13.5 g/dL (14.0-18.0) L 05/13/20 10:55 Hct 38.1 % (42.0-52.0) L 05/13/20 10:55 MCV 96.6 fL (78.0-98.0) 05/13/20 10:55 Plt Count 432 thou/uL (130-400) H 05/13/20 10:55 Neutrophils % 86.3 % (42.0-75.0) H 05/13/20 10:55 Sodium 146 mmol/L (136-145) H 05/13/20 10:55 Potassium 2.7 mmol/L (3.5-5.1) L* 05/13/20 10:55 Chloride 102 mmol/L (98-107) 05/13/20 10:55 Carbon Dioxide 23 mmol/L (23-31) 05/13/20 10:55 BUN 21 mg/dL (8.4-25.7) 05/13/20 10:55 Creatinine 1.07 mg/dL (0.7-1.3) 05/13/20 10:55 Glucose 211 mg/dL (83-110) H 05/13/20 10:55 Lactic Acid 3.3 mmol/L (0.5-2.2) H 05/13/20 11:00 Calcium 9.3 mg/dL (7.8-10.44) 05/13/20 10:55 Total Bilirubin 1.9 mg/dL (0.2-1.2) H 05/13/20 10:55 AST 27 U/L (5-34) 05/13/20 10:55 ALT 32 U/L (8-55) 05/13/20 10:55 Alkaline Phosphatase 156 U/L (40-110) H 05/13/20 10:55 Serum Total Protein 7.4 g/dL (5.8-8.1) 05/13/20 10:55 Albumin 3.7 g/dL (3.4-4.8) 05/13/20 10:55 Urine Ketones 20 mg/dL (Negative) A 05/13/20 13:00 Urine Blood Negative (Negative) 05/13/20 13:00 Urine Nitrite Negative (Negative) 05/13/20 13:00 Ur Leukocyte Esterase Negative Emanuel/uL (Negative) 05/13/20 13:00 - EKG Interpretation EKG: Sinus tachycardia, LVH - Radiology Interpretation Chest x-ray Status: image reviewed by me, report reviewed by me (consistent w/ viral pn eumonia) Other Status: image reviewed by me, report reviewed by me Additional comment: CT Neck: pneumomediastinum, bilateral pulm infiltrates, small left pneumothorax FMR H&P: A/P - Plan 84-year-old male who rarely sees a PCP admitted today for: Covid pneumonia, cannot rule out bacterial component - initially acutely hypoxic, this has now resolved - inflammatory marker labs: PT/INR, d-dimer, fibrinogen, CRP - continue dexamethasone daily - procalcitonin ordered - continue azithromycin, ceftriaxone - therapeutic lovenox, check anti-Xa level on day 2 of lovenox - patient outside window for remdesivir and convalescent plasma - airborne and contact precautions Pneumomediastinum Left small pneumothorax - NPO - no clear source of major trauma, likely 2/2 to Covid - Continue 2L NC oxygen no matter what his O2 sat is - repeat CXR in 4-6 hours (approximately at 1800 on 05/13) - continuous O2 monitoring and close observation for decompensation Dysphagia - Speech therapy consulted - 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 Per radiology, not likely to cause acute dysphagia Anion gap metabolic acidosis likely 2/2 lactic acidosis - pt dehydrated with acute infection - Continue NS at 150 mL/hr - was recently started on metformin and do not think this is contributing to his high lactate; however, we will hold metformin Hypokalemia - 40 mEq IV started in ED - patient is NPO, continue IV replacement. 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 General deconditioning: PT/OT ordered. Atherosclerosis of ICAs: monitor. Code: FULL, discussed with VTE: th lovenox GI ppx: none Diet: NPO, pending speech eval. PCP: HOANG Hodges Disposition/LOS: admit to inpatient telemetry. ELOS > 48 H. Addendum - Attending - Attending Attestation Date/Time: 05/14/20 1010 I personally evaluated the patient and discussed the management with Dr. Garcia. I agree with the History, Examination, Assessment and Plan documented above with any addition or exceptions noted below. He looks wonderful this morning. Can be d/c'd and followed in clinic.
[2020-05-13 14:23] LABS: Prothrombin Time 13.4 sec (12.0-14.7)
[2020-05-13 14:24] LABS: D-Dimer Test 1.5 *mcg/mL (0.27-0.43)
[2020-05-13] MEDS ORDERED: Potassium Chloride 40 MEQ in Sodium Chloride 0.9% 250 ML 250 ML IVPB SCH (14:30)
[2020-05-13 17:19] VITALS: BMI 19.7
[2020-05-13] MEDS: Sodium Chloride 0.9% 1,000 ML IV SCH (19:29)
[2020-05-13] MEDS: Enoxaparin Sodium 80 MG/0.8 ML SYRINGE SC SCH (19:51)
[2020-05-14] MEDS ORDERED: hydrALAZINE 20 MG/ML VIAL SLOW IVP PRN (00:28)
[2020-05-14] MEDS: Sodium Chloride 0.9% 1,000 ML IV SCH ×2 (00:34→08:24)
[2020-05-14 05:23] LABS: D-Dimer Test 1.21 *mcg/mL (0.27-0.43)
[2020-05-14 05:25] LABS: #Lymphocytes 1.3 thou/uL (1.20-3.40); #Monocytes 0.3 thou/uL (0.11-0.59); #Neutrophils 7.2 thou/uL (1.40-6.50); %Basophils 0.1 % (0.0-1.0); %Eosinophils 0.4 % (0.0-10.0); %Lymphocytes 14.4 % (21.0-51.0); %Monocytes 3.4 % (0.0-10.0); %Neutrophils 81.7 % (42.0-75.0); Hemoglobin 10.2 g/dL (14.0-18.0); Mean Corpuscular HGB CONC 34.4 g/dL (32.0-36.0); Mean Corpuscular Hemoglobin 33.6 pg (27.0-31.0); Mean Corpuscular Volume 97.6 fL (78.0-98.0); Platelet Count 266 thou/uL (130-400); RBC Distribution Width 13.4 % (11.5-14.5); Red Blood Cell (RBC) Count 3.02 mill/uL (4.70-6.10); White Blood Cell (WBC) Count 8.9 thou/uL (4.8-10.8)
[2020-05-14 05:36] LABS: ALT (SGPT) 23 U/L (8-55); AST (SGOT) 16 U/L (5-34); Albumin 2.9 g/dL (3.4-4.8); Alkaline Phosphatase 118 U/L (40-110); Anion Gap 17 mmol/L (10-20); BUN (Urea Nitrogen) 21 mg/dL (8.4-25.7); Bilirubin, Total 0.5 mg/dL (0.2-1.2); Calc. Creatinine Clearance 65 mL/min (70-130); Calcium 8.1 mg/dL (7.8-10.44); Carbon Dioxide 23 mmol/L (23-31); Chloride 112 mmol/L (98-107); Estimated GFR-MDRD 87; Globulin 2.8 g/dL (2.4-3.5); Glucose 112 mg/dL (83-110); Protein, Total 5.7 g/dL (5.8-8.1); Sodium 148 mmol/L (136-145)
--- NOTE | 2020-05-14 07:36 | PDOC.FM ---
- Subjective Subjective: Patient doing well this morning. Denies pain/trouble breathing. Speech has yet to see him. - Objective MAR Reviewed: Yes Vital Signs & Weight: Vital Signs (12 hours) Temp Pulse Resp BP BP Pulse Ox 05/14/20 04:39 97.9 F 61 16 144/66 H 100 05/14/20 01:19 97.9 F 71 16 100 05/14/20 00:20 129/62 05/13/20 19:59 97.8 F 71 16 163/72 H 100 05/13/20 19:50 100 Weight Weight 69.763 kg I&O: 05/13/20 05/14/20 05/15/20 06:59 06:59 06:59 Intake Total 120 Output Total 50 Balance 70 Result Diagrams: 05/14/20 05:08 05/14/20 05:08 Phys Exam - Physical Examination Constitutional: NAD improved on R, very slightly diminised on L Cardiovascular: RRR, no significant murmur (overnight tele NSR) Gastrointestinal: soft, non-tender, no distention Musculoskeletal: no edema, pulses present Psychiatric: normal affect, A&O x 3 Dx/Plan - Plan Plan: 84-year-old male who rarely sees a PCP admitted today for: Covid pneumonia, cannot rule out bacterial component - continue dexamethasone daily - procalcitonin low, consider d/c antibiotics today: azithromycin, ceftriaxone - therapeutic lovenox, check anti-Xa level on day 2 of lovenox - patient outside window for remdesivir and convalescent plasma - airborne and contact precautions Pneumomediastinum Left small pneumothorax - NPO - Continue 2L NC oxygen no matter what his O2 sat is - CXR stable: awaiting read - continuous O2 monitoring and close observation for decompensation Dysphagia - Speech therapy consulted - 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 General deconditioning: PT/OT ordered. Atherosclerosis of ICAs: monitor. Code: FULL, discussed with VTE: th lovenox GI ppx: none Diet: NPO, pending speech eval. PCP: HOANG Hodges Disposition/LOS: admit to inpatient telemetry. Addendum - Attending - Attending Attestation Date/Time: 05/14/20 1013 I personally evaluated the patient and discussed the management with Dr. Garcia. I agree with the History, Examination, Assessment and Plan documented above with any addition or exceptions noted below. Looks wonderful this AM. D/c pending speech evaluation and d/c of oxygen.
[2020-05-14] MEDS: Enoxaparin Sodium 80 MG/0.8 ML SYRINGE SC SCH (07:59)
[2020-05-14] MEDS ORDERED: Dexamethasone 4 MG TAB PO SCH (08:00)
--- NOTE | 2020-05-14 08:45 | RAD ---
AP CHEST: Date: 05/14/2020 INDICATION: Pneumonia follow-up. COMPARISON: 05/13/2020. FINDINGS: Hazy patchy infiltrate in the peripheral mid and lower left lung again noted. Right lung appears cordell r. Heart and mediastinum unremarkable. Vascular markings normal. IMPRESSION: Hazy patchy infiltrate in the left mid and lower lung not significantly changed from yesterday. POS: AGW
[2020-05-14] MEDS ORDERED: Lisinopril 10 MG TAB PO SCH (09:00)
[2020-05-14] MEDS ORDERED: FLU VACC QS2020-21(65YR UP)/PF 240 MCG/0.7 ML SYRINGE IM ONE (09:00)
[2020-05-14 12:00] VITALS: TEMP 97.7
[2020-05-14 15:20] VITALS: BP 152/69
--- NOTE | 2020-05-15 02:46 | DIS ---
DATE OF ADMISSION: 05/13/2020 DATE OF DISCHARGE: 05/14/2020 RESIDENT: Clary Garcia MD ADMITTING/DISCHARGE ATTENDING: Dr. Butch Reid PROCEDURES: 1. Soft tissue neck CT. Impression: Diffuse calcification along epiglottis (see addendum). Pneumomediastinum. Small left pneumothorax. Bilateral pulmonary infiltrates. Distended upper airway suggestive of dyspnea, stridor. Atherosclerotic disease of bilateral proximal internal carotid arteries. 2. Chest x-ray, 05/13/2020. Impression: Findings suggestive of viral pneumonia. 3. Repeat chest x-ray 05/14/2020. Impression: Hazy patchy infiltrate in the left mid and lower lung, not significantly changed from prior. PRIMARY DIAGNOSIS: 1. Pneumonia secondary to coronavirus. 2. Pneumomediastinum. 3. Small left pneumothorax. 4. Acute dysphagia. 5. Anion gap metabolic acidosis, resolved. 6. Hypokalemia, resolved. 7. Dehydration, improved. SECONDARY DIAGNOSIS: 1. Diabetes, unclear if type 1 or type 2. 2. Hypertension. 3. Osteolytic lesion of right shoulder, being worked up as outpatient. 4. History of colon cancer. 5. General deconditioning. 6. Atherosclerosis. DISCHARGE MEDICATIONS: 1. Dexamethasone 6 mg p.o. every morning x10 days. 2. Acetaminophen 650 mg p.o. q.4 hours p.r.n. 3. Apixaban 5 mg p.o. b.i.d. for 30 days due to coronavirus risk/hypercoagulability 4. Lisinopril 10 mg p.o. daily. 5. Lantus one each subcutaneous before meals and at bedtime. 6. Blood glucose meter one device. 7. Blood sugar test strips one each before meals and at bedtime. 8. Insulin lispro, sliding scale units per primary care physician. 9. Levemir 6 units b.i.d., may be taken as 12 units at night. Discontinued medications: 1. Metformin 500 mg p.o. twice daily with meals. 2. Lisinopril 5 mg p.o. daily. HISTORY OF PRESENT ILLNESS AND HOSPITAL COURSE: This pleasant 84-year-old male was sent to the emergency room by his primary care provider while at clinic. His oxygen saturation was low, and his blood pressure was 80/60 with heart rate of 120. On his last admission, he was incidentally COVID positive on May 02 and had a mild cough at that time. He was admitted at that time because he had a fall and was newly diagnosed with diabetes at age 84 with an A1c of 11.5%. The patient was a poor historian, but his daughter was able to give me somewhat more information. The patient had experienced dysphagia at home and had trouble swallowing since being last discharged from the hospital. Daughter reports he was losing weight and not eating as much. The daughter was also concerned that the osteolytic lesion on his right shoulder found on last admission could be some sort of cancer. In the emergency department, the patient was given azithromycin, ceftriaxone, and started on some potassium and normal saline. He also received dexamethasone, 1 L of normal saline, and placed under the William Hugger for temperature of 92 degrees Fahrenheit. Due to his dysphagia, the ER obtained a soft tissue neck CT with findings as detailed above. The patient was placed on 2 L of oxygen overnight, and repeat chest x-ray showed a stable chest. Pneumothorax and pneumomediastinum were not visible on either chest x-ray and only visible on the CT of the neck. For the patient's dysphagia, Speech Therapy saw him and gave him a national dysphagia diet 3 with chopped textures and nectar thick liquids. The patient's potassium was replaced IV and resolved overnight. The patient also was hydrated overnight, and his anion gap metabolic acidosis also resolved. Suspect these findings were most likely due to poor hydration and food intake. Due to concern for the late onset of diabetes development in life and unclear if this was a type 1 or type 2, the patient's metformin was discontinued. Instructed him to continue his Lantus and Humalog per primary care provider. Recommend he have some autoimmune studies to differentiate what type of diabetes he has. He also should have a repeat A1C because if he is really not diabetic, this could have caused him to have hypokalemia. He should continue to check his blood sugar at least twice a day. The patient's blood pressure seemed a little bit high on 5 mg of lisinopril, so this was increased to 10 mg. We also recommended the patient follow up with Speech Therapy given the findings on the neck CT and his dysphagia. For the osteolytic lesion of the right shoulder, we agreed with primary care provider to obtain protein electrophoresis and outpatient CT scan of the shoulder. DISCHARGE INSTRUCTIONS: Discharge location: Home with speech therapy. Activity: As tolerated. Diet: Diabetic diet with chopped textures and nectar thick liquid. Follow up: with [facility], Dr. Hodges, his primary care provider. Job ID: [id number]
== END 2020-05-14 13:55 | disposition home or self-care (01) | DRG 177 ==
LOC: ERS 10:23 → 2SW 12:59
PROVIDERS: ADMIT Emergency Medicine; ATTEND Emergency Medicine
PROC: 8E0ZXY6 Isolation (ICD-10-PCS; principal; 2020-05-13)
DX: U07.1 COVID-19 (principal); J12.89 Other viral pneumonia; J93.9 Pneumothorax, unspecified; E87.2 Acidosis; J98.2 Interstitial emphysema; R13.10 Dysphagia, unspecified; E87.6 Hypokalemia; E11.9 Type 2 diabetes mellitus without complications; E03.9 Hypothyroidism, unspecified; E86.0 Dehydration; I65.23 Occlusion and stenosis of bilateral carotid arteries; I10 Essential (primary) hypertension; M89.511 Osteolysis, right shoulder; R53.81 Other malaise; Z85.038 Personal history of other malignant neoplasm of large intestine
CPT/HCPCS: 36415; 36416; 70491; 71045; 80053; 81003; 83605; 84145; 84443; 84484; 85025; 85379; 85384; 85610; 86140; 87040; 87081; 87086; 87430; 87804; 93005; 96365; 96366; 96367; 96375; J0456; J0696; J1100; J1650; J3480; J7050; J8540

== ENCOUNTER 2022-06-23 15:28 | Inpatient (IN) | payer MEDICARE ==
[~2022-06-23 15:28] MED LIST: Magnevist 469MG/ML 20 ML VIAL ONE
[2022-06-23 16:24] LABS: ALT (SGPT) 31 U/L (8-55); AST (SGOT) 23 U/L (5-34); Alkaline Phosphatase 146 U/L (40-110); Anion Gap 12 mmol/L (10-20); BUN (Urea Nitrogen) 25 mg/dL (8.4-25.7); Bilirubin, Total 0.6 mg/dL (0.2-1.2); Calc. Creatinine Clearance 0 mL/min (70-130); Calcium 8.9 mg/dL (7.8-10.44); Carbon Dioxide 22 mmol/L (23-31); Chloride 109 mmol/L (98-107); Estimated GFR 74; Globulin 3.2 g/dL (2.4-3.5); Glucose 170 mg/dL (83-110); Protein, Total 7.2 g/dL (5.8-8.1); Sodium 139 mmol/L (136-145)
[2022-06-23 17:10] LABS: #Monocytes 0.4 thou/uL (0.11-0.59); %Basophils 0.3 % (0.0-1.0); %Eosinophils 0.4 % (0.0-10.0); %Lymphocytes 13.4 % (21.0-51.0); %Monocytes 5.6 % (0.0-10.0); %Neutrophils 80.2 % (42.0-75.0); Hemoglobin 9.2 g/dL (14.0-18.0); Mean Corpuscular HGB CONC 34.7 g/dL (32.0-36.0); Mean Corpuscular Hemoglobin 34.3 pg (27.0-31.0); Mean Corpuscular Volume 99.1 fl (78.0-98.0); Mean Platelet Volume 6.9 fL (7.4-10.4); Platelet Count 285 10x3/uL (130-400); RBC Distribution Width 12.5 % (11.5-14.5); Red Blood Cell (RBC) Count 2.67 mill/uL (4.70-6.10); White Blood Cell (WBC) Count 7.5 10x3/uL (4.8-10.8)
[2022-06-23 19:37] LABS: SARS-CoV-2 NAA Rapid Test Not Detected (NotDetected)
[2022-06-23 20:38] VITALS: BMI 19.5
[2022-06-23] MEDS: cefTRIAXone\\ROCEPHIN 2 GM in Sodium Chloride 0.9% 100 ML IVPB SCH (20:58)
[2022-06-23] MEDS: Atorvastatin Calcium 40 MG TAB PO SCH (20:58)
[2022-06-23] MEDS: Vancomycin 1.5 GRAM/300 ML BAG 1.5 GM in Premix Bag 1 BAG IVPB SCH (21:37)
[2022-06-24 07:01] LABS: #Eosinphils 0.1 thou/uL (0.0-0.7); #Lymphocytes 1.2 thou/uL (1.20-3.40); #Monocytes 0.5 thou/uL (0.11-0.59); %Basophils 0.2 % (0.0-1.0); %Lymphocytes 18.1 % (21.0-51.0); %Monocytes 7.3 % (0.0-10.0); %Neutrophils 73.5 % (42.0-75.0); Hemoglobin 8.2 g/dL (14.0-18.0); Mean Corpuscular HGB CONC 34.4 g/dL (32.0-36.0); Mean Corpuscular Hemoglobin 34.1 pg (27.0-31.0); Mean Corpuscular Volume 99.2 fl (78.0-98.0); Mean Platelet Volume 7.2 fL (7.4-10.4); Platelet Count 240 10x3/uL (130-400); RBC Distribution Width 12.2 % (11.5-14.5); White Blood Cell (WBC) Count 6.8 10x3/uL (4.8-10.8)
[2022-06-24 07:20] LABS: ALT (SGPT) 22 U/L (8-55); AST (SGOT) 14 U/L (5-34); Albumin 3.3 g/dL (3.4-4.8); Alkaline Phosphatase 117 U/L (40-110); Anion Gap 12 mmol/L (10-20); BUN (Urea Nitrogen) 22 mg/dL (8.4-25.7); Bilirubin, Total 0.3 mg/dL (0.2-1.2); Calc. Creatinine Clearance 65 mL/min (70-130); Calcium 8.4 mg/dL (7.8-10.44); Carbon Dioxide 21 mmol/L (23-31); Chloride 110 mmol/L (98-107); Estimated GFR 86; Globulin 2.6 g/dL (2.4-3.5); Glucose 114 mg/dL (83-110); Potassium 3.9 mmol/L (3.5-5.1); Protein, Total 5.9 g/dL (5.8-8.1); Sodium 139 mmol/L (136-145)
[2022-06-24] MEDS ORDERED: FLU VACC QS2022-23(65YR UP)/PF 240 MCG/0.7 ML SYRINGE IM ONE (09:00)
[2022-06-24] MEDS: Cyanocobalamin (Vitamin B-12) 1,000 MCG TAB PO SCH (09:13)
[2022-06-24] MEDS: Lisinopril 10 MG TAB PO SCH (09:13)
[2022-06-24] MEDS: cefTRIAXone\\ROCEPHIN 2 GM in Sodium Chloride 0.9% 100 ML IVPB SCH (19:57)
[2022-06-24] MEDS: Atorvastatin Calcium 40 MG TAB PO SCH (20:02)
[2022-06-24] MEDS: Vancomycin 1.5 GRAM/300 ML BAG 1.5 GM in Premix Bag 1 BAG IVPB SCH (20:02)
[2022-06-25 07:25] LABS: #Eosinphils 0.1 thou/uL (0.0-0.7); #Lymphocytes 1.6 thou/uL (1.20-3.40); #Monocytes 0.4 thou/uL (0.11-0.59); #Neutrophils 3.9 thou/uL (1.40-6.50); %Basophils 0.1 % (0.0-1.0); %Eosinophils 1.5 % (0.0-10.0); %Lymphocytes 26.8 % (21.0-51.0); %Neutrophils 65.6 % (42.0-75.0); Hemoglobin 8.3 g/dL (14.0-18.0); Mean Corpuscular Hemoglobin 33.8 pg (27.0-31.0); Mean Corpuscular Volume 99.4 fl (78.0-98.0); Platelet Count 261 10x3/uL (130-400); RBC Distribution Width 12.1 % (11.5-14.5); Red Blood Cell (RBC) Count 2.44 mill/uL (4.70-6.10); White Blood Cell (WBC) Count 5.9 10x3/uL (4.8-10.8)
[2022-06-25 07:45] LABS: ALT (SGPT) 21 U/L (8-55); AST (SGOT) 11 U/L (5-34); Albumin 3.3 g/dL (3.4-4.8); Alkaline Phosphatase 120 U/L (40-110); Anion Gap 11 mmol/L (10-20); BUN (Urea Nitrogen) 14 mg/dL (8.4-25.7); Bilirubin, Total 0.5 mg/dL (0.2-1.2); Calc. Creatinine Clearance 67 mL/min (70-130); Calcium 8.6 mg/dL (7.8-10.44); Carbon Dioxide 22 mmol/L (23-31); Chloride 109 mmol/L (98-107); Estimated GFR 87; Globulin 2.9 g/dL (2.4-3.5); Glucose 108 mg/dL (83-110); Protein, Total 6.2 g/dL (5.8-8.1); Sodium 138 mmol/L (136-145)
[2022-06-25] MEDS: Cyanocobalamin (Vitamin B-12) 1,000 MCG TAB PO SCH (09:02)
[2022-06-25] MEDS: Lisinopril 10 MG TAB PO SCH (09:03)
[2022-06-25] MEDS ORDERED: Aspirin 81 mg Enteric Coated Tablet PO SCH (12:00)
[2022-06-25] MEDS: cefTRIAXone\\ROCEPHIN 2 GM in Sodium Chloride 0.9% 100 ML IVPB SCH (19:39)
[2022-06-25] MEDS: Atorvastatin Calcium 40 MG TAB PO SCH (19:40)
[2022-06-25] MEDS: Vancomycin 1.5 GRAM/300 ML BAG 1.5 GM in Premix Bag 1 BAG IVPB SCH (20:44)
[2022-06-25 21:20] LABS: Vancomycin, Trough 9.7 ug/mL
[2022-06-26 06:08] LABS: #Eosinphils 0.1 thou/uL (0.0-0.7); #Lymphocytes 1.4 thou/uL (1.20-3.40); #Monocytes 0.5 thou/uL (0.11-0.59); #Neutrophils 4.3 thou/uL (1.40-6.50); %Eosinophils 0.8 % (0.0-10.0); %Lymphocytes 22.7 % (21.0-51.0); %Monocytes 7.6 % (0.0-10.0); %Neutrophils 68.9 % (42.0-75.0); Hemoglobin 8.3 g/dL (14.0-18.0); Mean Corpuscular HGB CONC 34.5 g/dL (32.0-36.0); Mean Corpuscular Hemoglobin 34.2 pg (27.0-31.0); Mean Corpuscular Volume 98.9 fl (78.0-98.0); Mean Platelet Volume 6.7 fL (7.4-10.4); Platelet Count 228 10x3/uL (130-400); RBC Distribution Width 12.3 % (11.5-14.5); Red Blood Cell (RBC) Count 2.42 mill/uL (4.70-6.10); White Blood Cell (WBC) Count 6.2 10x3/uL (4.8-10.8)
[2022-06-26 06:34] LABS: ALT (SGPT) 30 U/L (8-55); AST (SGOT) 18 U/L (5-34); Albumin 3.4 g/dL (3.4-4.8); Alkaline Phosphatase 118 U/L (40-110); Anion Gap 11 mmol/L (10-20); BUN (Urea Nitrogen) 15 mg/dL (8.4-25.7); Bilirubin, Total 0.5 mg/dL (0.2-1.2); Calc. Creatinine Clearance 67 mL/min (70-130); Calcium 8.7 mg/dL (7.8-10.44); Carbon Dioxide 24 mmol/L (23-31); Chloride 107 mmol/L (98-107); Estimated GFR 87; Globulin 2.9 g/dL (2.4-3.5); Glucose 122 mg/dL (83-110); Potassium 4.1 mmol/L (3.5-5.1); Protein, Total 6.3 g/dL (5.8-8.1); Sodium 138 mmol/L (136-145)
[2022-06-26] MEDS ORDERED: Sodium Chloride 0.9% 1,000 ML IV SCH (07:00)
[2022-06-26] MEDS: Cyanocobalamin (Vitamin B-12) 1,000 MCG TAB PO SCH (07:31)
[2022-06-26] MEDS: Aspirin 81 mg Enteric Coated Tablet PO SCH (07:31)
[2022-06-26] MEDS: Vancomycin 1 GM in Premix Bag 1 BAG IVPB SCH ×2 (07:32→21:50)
[2022-06-26] MEDS: Lisinopril 10 MG TAB PO SCH (07:33)
[2022-06-26] MEDS ORDERED: Lactated Ringer's 1,000 ML IV SCH (09:00)
[2022-06-26] MEDS ORDERED: Lidocaine 1% PF 5 ML VIAL ONE ×2 (10:30→12:31)
[2022-06-26] MEDS ORDERED: Midazolam HCl 2 mg/2 ml Vial ONE (10:47)
[2022-06-26] MEDS ORDERED: Heparin 10,000 UNITS/ 10 ML VIAL ONE (10:47)
[2022-06-26] MEDS ORDERED: FENTANYL 50 MCG/ML 1 ML VIAL ONE (10:47)
[2022-06-26] MEDS ORDERED: hydrALAZINE 20 MG/ML VIAL ONE (11:11)
[2022-06-26] MEDS ORDERED: PHENYLEPHRINE-NS 100 MCG/ML 10 ML SYRINGE ONE (12:31)
[2022-06-26] MEDS ORDERED: PROPOFOL 200 MG/20 ML VIAL ONE (12:31)
[2022-06-26] MEDS ORDERED: Iopamidol 370 76% 50 ML VIAL FS ONE (12:47)
[2022-06-26] MEDS ORDERED: Fentanyl 100 MCG/2 ML VIAL ONE ×2 (13:46→14:24)
[2022-06-26 16:04] LABS: Iron 20 ug/dL (65-175); Iron Binding Capacity, Total 158 mcg/dL (261-462)
[2022-06-26 16:36] LABS: Ferritin 914.59 ng/mL (22-322)
[2022-06-26] MEDS ORDERED: Cefepime 2 GM in Sodium Chloride 0.9% 100 ML IVPB SCH (21:00)
[2022-06-26] MEDS: Atorvastatin Calcium 40 MG TAB PO SCH (21:50)
[2022-06-26] MEDS: traMADol HCl 50 MG TAB PO PRN (22:17)
[2022-06-27] MEDS: traMADol HCl 50 MG TAB PO PRN (04:24)
[2022-06-27] MEDS: Ciprofloxacin 500 MG TAB PO SCH ×2 (05:25→19:47)
[2022-06-27 07:08] LABS: #Eosinphils 0.1 thou/uL (0.0-0.7); #Lymphocytes 1.1 thou/uL (1.20-3.40); #Monocytes 0.5 thou/uL (0.11-0.59); #Neutrophils 5.1 thou/uL (1.40-6.50); %Eosinophils 0.9 % (0.0-10.0); %Lymphocytes 16.6 % (21.0-51.0); %Monocytes 6.9 % (0.0-10.0); %Neutrophils 75.7 % (42.0-75.0); Hemoglobin 7.6 g/dL (14.0-18.0); Mean Corpuscular HGB CONC 33.1 g/dL (32.0-36.0); Mean Corpuscular Volume 99.8 fl (78.0-98.0); Platelet Count 248 10x3/uL (130-400); RBC Distribution Width 12.1 % (11.5-14.5); Red Blood Cell (RBC) Count 2.31 mill/uL (4.70-6.10); White Blood Cell (WBC) Count 6.7 10x3/uL (4.8-10.8)
[2022-06-27 07:16] LABS: ALT (SGPT) 24 U/L (8-55); AST (SGOT) 14 U/L (5-34); Albumin 3.1 g/dL (3.4-4.8); Alkaline Phosphatase 104 U/L (40-110); Anion Gap 10 mmol/L (10-20); BUN (Urea Nitrogen) 12 mg/dL (8.4-25.7); Bilirubin, Total 0.7 mg/dL (0.2-1.2); Calc. Creatinine Clearance 73 mL/min (70-130); Calcium 8.4 mg/dL (7.8-10.44); Carbon Dioxide 23 mmol/L (23-31); Chloride 107 mmol/L (98-107); Estimated GFR 89; Globulin 2.8 g/dL (2.4-3.5); Glucose 117 mg/dL (83-110); Potassium 3.9 mmol/L (3.5-5.1); Protein, Total 5.9 g/dL (5.8-8.1); Sodium 136 mmol/L (136-145)
[2022-06-27] MEDS ORDERED: Ferrous Sulfate 325 MG TAB PO SCH (08:00)
[2022-06-27] MEDS: Aspirin 81 mg Enteric Coated Tablet PO SCH (09:40)
[2022-06-27] MEDS: Cyanocobalamin (Vitamin B-12) 1,000 MCG TAB PO SCH (09:40)
[2022-06-27] MEDS: Lisinopril 10 MG TAB PO SCH (09:40)
[2022-06-27] MEDS: Atorvastatin Calcium 40 MG TAB PO SCH (19:47)
[2022-06-27] MEDS: Acetaminophen 325 MG TAB PO PRN (19:47)
[2022-06-27] MEDS ORDERED: cefTRIAXone\\ROCEPHIN 2 GM in Sodium Chloride 0.9% 100 ML IVPB SCH (20:00)
[2022-06-27] MEDS ORDERED: Vancomycin 1 GM in Premix Bag 1 BAG IVPB SCH ×2 (21:00)
[2022-06-27] MEDS ORDERED: Amoxicillin/Potassium Clav 500 MG TAB PO SCH (21:00)
[2022-06-27] MEDS ORDERED: Cefepime 2 GM in Sodium Chloride 0.9% 100 ML IVPB SCH (21:00)
[2022-06-28] MEDS: Acetaminophen 325 MG TAB PO PRN ×2 (05:07→20:02)
[2022-06-28] MEDS: Ciprofloxacin 500 MG TAB PO SCH ×2 (05:08→20:02)
[2022-06-28 08:03] LABS: #Eosinphils 0.1 thou/uL (0.0-0.7); #Lymphocytes 1.2 thou/uL (1.20-3.40); #Monocytes 0.5 thou/uL (0.11-0.59); #Neutrophils 4.4 thou/uL (1.40-6.50); %Basophils 0.2 % (0.0-1.0); %Eosinophils 1.1 % (0.0-10.0); %Lymphocytes 20.1 % (21.0-51.0); %Monocytes 7.6 % (0.0-10.0); %Neutrophils 71.1 % (42.0-75.0); Hemoglobin 8.1 g/dL (14.0-18.0); Mean Corpuscular Hemoglobin 33.6 pg (27.0-31.0); Mean Corpuscular Volume 98.9 fl (78.0-98.0); Mean Platelet Volume 7.1 fL (7.4-10.4); Platelet Count 242 10x3/uL (130-400); RBC Distribution Width 12.3 % (11.5-14.5); White Blood Cell (WBC) Count 6.2 10x3/uL (4.8-10.8)
[2022-06-28 08:19] LABS: ALT (SGPT) 23 U/L (8-55); AST (SGOT) 15 U/L (5-34); Albumin 3.1 g/dL (3.4-4.8); Alkaline Phosphatase 106 U/L (40-110); Anion Gap 9 mmol/L (10-20); BUN (Urea Nitrogen) 13 mg/dL (8.4-25.7); Bilirubin, Total 0.7 mg/dL (0.2-1.2); Calc. Creatinine Clearance 67 mL/min (70-130); Calcium 8.7 mg/dL (7.8-10.44); Carbon Dioxide 25 mmol/L (23-31); Chloride 108 mmol/L (98-107); Estimated GFR 87; Globulin 2.9 g/dL (2.4-3.5); Glucose 105 mg/dL (83-110); Potassium 4.1 mmol/L (3.5-5.1); Sodium 138 mmol/L (136-145)
[2022-06-28] MEDS: Cyanocobalamin (Vitamin B-12) 1,000 MCG TAB PO SCH (08:41)
[2022-06-28] MEDS: Aspirin 81 mg Enteric Coated Tablet PO SCH (08:41)
[2022-06-28] MEDS: Lisinopril 10 MG TAB PO SCH (08:42)
[2022-06-28] MEDS: Atorvastatin Calcium 40 MG TAB PO SCH (20:02)
[2022-06-29] MEDS: Ciprofloxacin 500 MG TAB PO SCH (05:10)
[2022-06-29 07:02] LABS: #Eosinphils 0.1 thou/uL (0.0-0.7); #Lymphocytes 1.1 thou/uL (1.20-3.40); #Monocytes 0.5 thou/uL (0.11-0.59); #Neutrophils 4.7 thou/uL (1.40-6.50); %Basophils 0.5 % (0.0-1.0); %Eosinophils 1.6 % (0.0-10.0); %Lymphocytes 17.3 % (21.0-51.0); %Monocytes 8.1 % (0.0-10.0); %Neutrophils 72.5 % (42.0-75.0); Hemoglobin 7.9 g/dL (14.0-18.0); Mean Corpuscular HGB CONC 34.1 g/dL (32.0-36.0); Mean Corpuscular Hemoglobin 33.6 pg (27.0-31.0); Mean Corpuscular Volume 98.5 fl (78.0-98.0); Mean Platelet Volume 7.1 fL (7.4-10.4); Platelet Count 249 10x3/uL (130-400); RBC Distribution Width 12.2 % (11.5-14.5); Red Blood Cell (RBC) Count 2.34 mill/uL (4.70-6.10); White Blood Cell (WBC) Count 6.5 10x3/uL (4.8-10.8)
[2022-06-29 07:25] LABS: ALT (SGPT) 23 U/L (8-55); AST (SGOT) 17 U/L (5-34); Albumin 3.2 g/dL (3.4-4.8); Alkaline Phosphatase 108 U/L (40-110); Anion Gap 11 mmol/L (10-20); BUN (Urea Nitrogen) 14 mg/dL (8.4-25.7); Bilirubin, Total 0.6 mg/dL (0.2-1.2); Calc. Creatinine Clearance 64 mL/min (70-130); Calcium 8.8 mg/dL (7.8-10.44); Carbon Dioxide 24 mmol/L (23-31); Chloride 106 mmol/L (98-107); Estimated GFR 86; Glucose 110 mg/dL (83-110); Potassium 4.2 mmol/L (3.5-5.1); Protein, Total 6.2 g/dL (5.8-8.1); Sodium 137 mmol/L (136-145)
[2022-06-29 07:59] VITALS: TEMP 98.4
[2022-06-29] MEDS: Lisinopril 10 MG TAB PO SCH (09:36)
[2022-06-29] MEDS: Aspirin 81 mg Enteric Coated Tablet PO SCH (09:36)
[2022-06-29] MEDS: Cyanocobalamin (Vitamin B-12) 1,000 MCG TAB PO SCH (09:36)
[2022-06-29 17:36] VITALS: BP 121/63
== END 2022-06-29 18:56 | disposition home health service (06) | DRG 617 ==
LOC: ERS 15:28 → T4-B 18:24 → OBSVTOIN 06-25 07:22
PROVIDERS: ADMIT Family Medicine; ATTEND Family Medicine
PROC: B41D1ZZ Fluoroscopy of Aorta and Bilateral Lower Extremity Arteries using Low Osmolar Contrast (ICD-10-PCS; principal; 2022-06-26)
PROC: 0Y6N0Z9 Detachment at Left Foot, Partial 1st Ray, Open Approach (ICD-10-PCS; 2022-06-26)
DX: E11.69 Type 2 diabetes mellitus with other specified complication (principal); E11.52 Type 2 diabetes mellitus with diabetic peripheral angiopathy with gangrene; L03.116 Cellulitis of left lower limb; M86.172 Other acute osteomyelitis, left ankle and foot; I10 Essential (primary) hypertension; D64.9 Anemia, unspecified; Z89.412 Acquired absence of left great toe; Z90.49 Acquired absence of other specified parts of digestive tract; Z98.890 Other specified postprocedural states; Z79.899 Other long term (current) drug therapy; Z20.822 Contact with and (suspected) exposure to COVID-19
CPT/HCPCS: 36245; 36246; 36247; 36415; 75625; 75710; 75774; 80053; 80202; 82607; 82728; 83540; 83550; 83605; 85025; 85652; 86140; 87040; 87070; 87077; 87186; 87205; 88305; 88311; 93005; 93010; 94760; 96372; 96374; 96375; 96376; 97139; A9579; C1769; C1887; C1894; G0378; J0360; J0692; J0696; J1644; J1650; J2250; J2704; J3010; J3370; J3370-JW; J3490; J7050; Q9967; U0002

== ENCOUNTER 2022-07-07 18:08 | Emergency (ER) | payer MEDICARE | END 2022-07-07 18:37 | disposition home or self-care (01) | LOC: ERS 18:08 | DX: S81.802D Unspecified open wound, left lower leg, subsequent encounter (principal); X58.XXXD Exposure to other specified factors, subsequent encounter | CPT/HCPCS: 99282 ==

== ENCOUNTER 2022-07-17 18:20 | Inpatient (IN) | payer MEDICARE ==
[2022-07-17 18:57] LABS: #Lymphocytes 0.8 thou/uL (1.20-3.40); #Monocytes 0.7 thou/uL (0.11-0.59); #Neutrophils 14.2 thou/uL (1.40-6.50); %Eosinophils 0.1 % (0.0-10.0); %Lymphocytes 5.3 % (21.0-51.0); %Monocytes 4.2 % (0.0-10.0); %Neutrophils 90.3 % (42.0-75.0); Hemoglobin 8.8 g/dL (14.0-18.0); Mean Corpuscular HGB CONC 33.1 g/dL (32.0-36.0); Mean Corpuscular Hemoglobin 32.6 pg (27.0-31.0); Mean Corpuscular Volume 98.2 fl (78.0-98.0); Mean Platelet Volume 7.5 fL (7.4-10.4); Platelet Count 367 10x3/uL (130-400); RBC Distribution Width 12.5 % (11.5-14.5); White Blood Cell (WBC) Count 15.7 10x3/uL (4.8-10.8)
[2022-07-17 19:21] LABS: ALT (SGPT) 25 U/L (8-55); AST (SGOT) 11 U/L (5-34); Albumin 3.8 g/dL (3.4-4.8); Alkaline Phosphatase 153 U/L (40-110); Anion Gap 14 mmol/L (10-20); BUN (Urea Nitrogen) 33 mg/dL (8.4-25.7); Bilirubin, Total 0.9 mg/dL (0.2-1.2); Calc. Creatinine Clearance 0 mL/min (70-130); Carbon Dioxide 21 mmol/L (23-31); Chloride 106 mmol/L (98-107); Estimated GFR 65; Globulin 3.2 g/dL (2.4-3.5); Glucose 190 mg/dL (83-110); Potassium 3.1 mmol/L (3.5-5.1); Sodium 138 mmol/L (136-145)
[2022-07-17] MEDS ORDERED: Cefepime 2 GM VIAL ONE (20:25)
[2022-07-17] MEDS ORDERED: Vancomycin 1 GM in Premix Bag 1 BAG IVPB SCH (20:45)
[2022-07-17] MEDS ORDERED: Acetaminophen 325 MG TAB PO PRN (22:10)
[2022-07-17 22:18] LABS: Lactic Acid 2.4 mmol/L (0.5-2.2)
[2022-07-17] MEDS ORDERED: Dextrose 5% in Water 1,000 ML IV PRN (22:23)
[2022-07-17] MEDS ORDERED: HumaLOG 300 UNITS/3 ML VIAL SC PRN ×2 (22:23)
[2022-07-17] MEDS ORDERED: Dextrose 50% Abboject 50 ML SYRINGE SLOW IVP PRN (22:23)
[2022-07-17] MEDS ORDERED: Potassium Chloride 20 MEQ TAB PO SCH (22:30)
[2022-07-17 23:49] LABS: Hemoglobin A1c 4.8 % (4.0-6.0)
[2022-07-18] MEDS ORDERED: Ketorolac Tromethamine 30 MG/ML VIAL ONE (00:38)
[2022-07-18 00:45] LABS: Bacteria/HPF None Seen HPF (None Seen); Bilirubin Negative (Negative); Blood, Urine Negative (Negative); Clarity Clear (Clear); Glucose, Urine (Dipstick) 30 mg/dL (Negative); Ketone, Urine Negative (Negative); Leukocyte 75 Leu/uL (Negative); Nitrite Negative (Negative); Protein, Urine (Dipstick) 20 mg/dL (Neg-Trace); RBC/HPF 0-3 HPF (0-3); Specific Gravity, Urine 1.024 (1.002-1.036); Urobilinogen Normal mg/dL (Less than 2)
[2022-07-18] MEDS: Lactated Ringer's 1,000 ML IV SCH ×3 (00:47→17:55)
[2022-07-18] MEDS ORDERED: Potassium Chloride 20 MEQ TAB ONE (02:55)
[2022-07-18] MEDS ORDERED: Vancomycin 1 GM in Premix Bag 1 BAG IVPB SCH (05:00)
[2022-07-18] MEDS ORDERED: Piperacillin/Tazobactam 3.375 GM VIAL ONE (06:17)
[2022-07-18 07:30] LABS: #Eosinphils 0.2 thou/uL (0.0-0.7); #Lymphocytes 1.5 thou/uL (1.20-3.40); #Monocytes 0.6 thou/uL (0.11-0.59); #Neutrophils 7.1 thou/uL (1.40-6.50); %Basophils 0.1 % (0.0-1.0); %Eosinophils 1.6 % (0.0-10.0); %Lymphocytes 15.8 % (21.0-51.0); %Neutrophils 76.5 % (42.0-75.0); Hemoglobin 7.9 g/dL (14.0-18.0); Mean Corpuscular HGB CONC 32.4 g/dL (32.0-36.0); Mean Corpuscular Hemoglobin 32.9 pg (27.0-31.0); Platelet Count 215 10x3/uL (130-400); RBC Distribution Width 12.6 % (11.5-14.5); Red Blood Cell (RBC) Count 2.38 mill/uL (4.70-6.10); White Blood Cell (WBC) Count 9.3 10x3/uL (4.8-10.8)
[2022-07-18 07:33] LABS: ALT (SGPT) 19 U/L (8-55); AST (SGOT) 11 U/L (5-34); Alkaline Phosphatase 117 U/L (40-110); Anion Gap 12 mmol/L (10-20); BUN (Urea Nitrogen) 27 mg/dL (8.4-25.7); Bilirubin, Total 0.6 mg/dL (0.2-1.2); Calc. Creatinine Clearance 66 mL/min (70-130); Calcium 8.3 mg/dL (7.8-10.44); Carbon Dioxide 19 mmol/L (23-31); Chloride 113 mmol/L (98-107); Estimated GFR 88; Globulin 2.7 g/dL (2.4-3.5); Glucose 104 mg/dL (83-110); Potassium 3.5 mmol/L (3.5-5.1); Protein, Total 5.7 g/dL (5.8-8.1); Sodium 140 mmol/L (136-145)
[2022-07-18] MEDS: Heparin 5,000 UNITS/ML VIAL SC SCH ×3 (09:38→21:48)
[2022-07-18] MEDS: Cyanocobalamin (Vitamin B-12) 1,000 MCG TAB PO SCH (09:38)
[2022-07-18] MEDS ORDERED: Lisinopril 10 MG TAB ONE (09:40)
[2022-07-18] MEDS ORDERED: Aspirin Chewable 81 MG TAB ONE (09:40)
[2022-07-18] MEDS ORDERED: Cefepime 2 GM VIAL ONE (09:40)
[2022-07-18] MEDS: Aspirin 81 mg Enteric Coated Tablet PO SCH (09:41)
[2022-07-18] MEDS: Lisinopril 10 MG TAB PO SCH (09:41)
[2022-07-18] MEDS: Cefepime 2 GM in Sodium Chloride 0.9% 100 ML IVPB SCH ×2 (09:41→21:47)
[2022-07-18] MEDS ORDERED: Potassium Chloride 20 MEQ TAB PO SCH (12:00)
[2022-07-18 12:24] LABS: Iron 33 ug/dL (65-175); Iron Binding Capacity, Total 126 mcg/dL (261-462)
[2022-07-18] MEDS ORDERED: FLU VACC QS2022-23(65YR UP)/PF 240 MCG/0.7 ML SYRINGE IM ONE (14:00)
[2022-07-18] MEDS ORDERED: VANCOMYCIN 1.25 GM/250 ML BAG 1.25 GM in Premix Bag 1 BAG IVPB SCH (16:00)
[2022-07-18 16:25] VITALS: BMI 22.7
[2022-07-18] MEDS: Gabapentin 100 MG CAP PO SCH (21:47)
[2022-07-18] MEDS: Atorvastatin Calcium 40 MG TAB PO SCH (21:47)
[2022-07-19] MEDS: Lactated Ringer's 1,000 ML IV SCH ×2 (01:05→15:26)
[2022-07-19 05:06] LABS: #Eosinphils 0.1 thou/uL (0.0-0.7); #Lymphocytes 1.1 thou/uL (1.20-3.40); #Monocytes 0.4 thou/uL (0.11-0.59); #Neutrophils 5.8 thou/uL (1.40-6.50); %Eosinophils 1.7 % (0.0-10.0); %Lymphocytes 14.9 % (21.0-51.0); %Monocytes 5.3 % (0.0-10.0); %Neutrophils 78.1 % (42.0-75.0); Hemoglobin 7.3 g/dL (14.0-18.0); Mean Corpuscular HGB CONC 33.3 g/dL (32.0-36.0); Mean Corpuscular Hemoglobin 33.2 pg (27.0-31.0); Mean Corpuscular Volume 99.7 fl (78.0-98.0); Mean Platelet Volume 7.1 fL (7.4-10.4); Platelet Count 211 10x3/uL (130-400); RBC Distribution Width 12.3 % (11.5-14.5); White Blood Cell (WBC) Count 7.5 10x3/uL (4.8-10.8)
[2022-07-19 05:25] LABS: ALT (SGPT) 17 U/L (8-55); AST (SGOT) 13 U/L (5-34); Albumin 2.8 g/dL (3.4-4.8); Alkaline Phosphatase 104 U/L (40-110); Anion Gap 10 mmol/L (10-20); BUN (Urea Nitrogen) 21 mg/dL (8.4-25.7); Bilirubin, Total 0.5 mg/dL (0.2-1.2); Calc. Creatinine Clearance 77 mL/min (70-130); Calcium 8.1 mg/dL (7.8-10.44); Carbon Dioxide 22 mmol/L (23-31); Chloride 111 mmol/L (98-107); Estimated GFR 90; Globulin 2.5 g/dL (2.4-3.5); Glucose 115 mg/dL (83-110); Protein, Total 5.3 g/dL (5.8-8.1); Sodium 139 mmol/L (136-145)
[2022-07-19] MEDS ORDERED: Sodium Chloride 0.45% 1,000 ML IV SCH ×2 (06:00→11:33)
[2022-07-19] MEDS ORDERED: Sodium Chloride 0.9% 1,000 ML IV SCH (07:00)
[2022-07-19] MEDS ORDERED: Ketamine 50 MG/ML (10ML VIAL) ONE (08:40)
[2022-07-19] MEDS ORDERED: fentaNYL PF 100 MCG/2 ML SYRINGE ONE ×3 (08:40→10:45)
[2022-07-19] MEDS ORDERED: Lidocaine 1% PF 5 ML VIAL ONE (09:07)
[2022-07-19] MEDS ORDERED: PHENYLEPHRINE-NS 100 MCG/ML 10 ML SYRINGE ONE (09:07)
[2022-07-19] MEDS ORDERED: HYDROmorphone 2 MG/ML VIAL SLOW IVP PRN (10:45)
[2022-07-19] MEDS ORDERED: Ondansetron HCl/PF 4 MG/2 ML Vial IVP PRN (10:45)
[2022-07-19] MEDS ORDERED: Morphine Sulfate 2 MG/ML SYRINGE SLOW IVP PRN (10:45)
[2022-07-19] MEDS ORDERED: Promethazine HCl 25 MG/ML VIAL IM PRN ×2 (10:45→12:12)
[2022-07-19] MEDS ORDERED: Fentanyl 100 MCG/2 ML VIAL ONE (11:04)
[2022-07-19] MEDS ORDERED: HYDROmorphone 0.5 MG/0.5 ML SYRINGE ONE ×2 (11:45→12:18)
[2022-07-19] MEDS ORDERED: Zolpidem Tartrate 5 MG TAB PO PRN (12:12)
[2022-07-19] MEDS ORDERED: Naloxone HCl 0.4 mg/ml Vial IV PRN (12:12)
[2022-07-19] MEDS ORDERED: diphenhydrAMINE 50 MG/ML VIAL IM PRN (12:12)
[2022-07-19] MEDS ORDERED: Ondansetron PF 4 MG/2 ML Vial IVP PRN (12:12)
[2022-07-19] MEDS ORDERED: diphenhydrAMINE 50 MG/ML VIAL IVP PRN (12:12)
[2022-07-19] MEDS ORDERED: diphenhydrAMINE 25 MG CAP PO PRN (12:12)
[2022-07-19] MEDS ORDERED: FENTANYL 500 MCG/10 ML VIAL 2,000 MCG in Sodium Chloride 0.9% 60 ML IV PRN (12:12)
[2022-07-19] MEDS ORDERED: Communication Order-Pharmacy FS SCH (12:15)
[2022-07-19] MEDS: Aspirin 81 mg Enteric Coated Tablet PO SCH (14:02)
[2022-07-19] MEDS: Cyanocobalamin (Vitamin B-12) 1,000 MCG TAB PO SCH (14:06)
[2022-07-19] MEDS: Lisinopril 10 MG TAB PO SCH (14:07)
[2022-07-19] MEDS: Gabapentin 100 MG CAP PO SCH ×3 (14:07→21:11)
[2022-07-19] MEDS: Heparin 5,000 UNITS/ML VIAL SC SCH ×3 (14:07→21:20)
[2022-07-19 14:52] LABS: Vancomycin, Trough 8.1 ug/mL
[2022-07-19] MEDS: Cefepime 2 GM in Sodium Chloride 0.9% 100 ML IVPB SCH ×2 (15:25→17:24)
[2022-07-19] MEDS ORDERED: VANCOMYCIN 1.75 GM/500 ML BAG 1.75 GM in Premix Bag 1 BAG IVPB SCH (16:00)
[2022-07-19] MEDS: Atorvastatin Calcium 40 MG TAB PO SCH (21:11)
[2022-07-19 23:30] LABS: Hemoglobin 8.1 g/dL (14.0-18.0)
[2022-07-20] MEDS: Cefepime 2 GM in Sodium Chloride 0.9% 100 ML IVPB SCH ×2 (02:05→09:23)
[2022-07-20 04:10] LABS: #Eosinphils 0.1 thou/uL (0.0-0.7); #Lymphocytes 0.9 thou/uL (1.20-3.40); #Monocytes 0.5 thou/uL (0.11-0.59); #Neutrophils 5.3 thou/uL (1.40-6.50); %Eosinophils 0.9 % (0.0-10.0); %Lymphocytes 13.5 % (21.0-51.0); %Monocytes 7.2 % (0.0-10.0); %Neutrophils 78.4 % (42.0-75.0); Hemoglobin 7.6 g/dL (14.0-18.0); Mean Corpuscular HGB CONC 33.5 g/dL (32.0-36.0); Mean Corpuscular Hemoglobin 31.9 pg (27.0-31.0); Mean Platelet Volume 7.5 fL (7.4-10.4); Platelet Count 193 10x3/uL (130-400); RBC Distribution Width 15.1 % (11.5-14.5); White Blood Cell (WBC) Count 6.7 10x3/uL (4.8-10.8)
[2022-07-20 04:32] LABS: Anion Gap 9 mmol/L (10-20); BUN (Urea Nitrogen) 14 mg/dL (8.4-25.7); Calc. Creatinine Clearance 87 mL/min (70-130); Calcium 7.9 mg/dL (7.8-10.44); Carbon Dioxide 23 mmol/L (23-31); Chloride 109 mmol/L (98-107); Estimated GFR 93; Glucose 108 mg/dL (83-110); Potassium 3.7 mmol/L (3.5-5.1); Sodium 137 mmol/L (136-145)
[2022-07-20] MEDS: Lisinopril 10 MG TAB PO SCH (09:23)
[2022-07-20] MEDS: Cyanocobalamin (Vitamin B-12) 1,000 MCG TAB PO SCH (09:23)
[2022-07-20] MEDS: Aspirin 81 mg Enteric Coated Tablet PO SCH (09:23)
[2022-07-20] MEDS: Gabapentin 100 MG CAP PO SCH ×3 (09:24→20:24)
[2022-07-20] MEDS: Heparin 5,000 UNITS/ML VIAL SC SCH ×3 (09:24→20:24)
[2022-07-20] MEDS ORDERED: HYDROcodone/Acetaminophen 5/325 mg Tablet PO PRN (09:52)
[2022-07-20] MEDS ORDERED: Fentanyl 100 MCG/2 ML VIAL SLOW IVP PRN (09:53)
[2022-07-20] MEDS ORDERED: Potassium Chloride 20 MEQ TAB PO SCH (11:15)
[2022-07-20] MEDS ORDERED: Polyethylene Glycol 3350 17 GM Packet PO PRN (11:20)
[2022-07-20] MEDS: Polyethylene Glycol 3350 17 GM Packet PO SCH (11:52)
[2022-07-20] MEDS: HYDROcodone/Acetaminophen 5/325 mg Tablet PO PRN ×2 (12:35→20:25)
[2022-07-20] MEDS ORDERED: Polyethylene Glycol 3350 17 GM Packet PO SCH (12:45)
[2022-07-20] MEDS: Atorvastatin Calcium 40 MG TAB PO SCH (20:25)
[2022-07-21 04:40] LABS: Hemoglobin 7.5 g/dL (14.0-18.0); Mean Corpuscular HGB CONC 33.2 g/dL (32.0-36.0); Mean Corpuscular Hemoglobin 32.9 pg (27.0-31.0); Mean Platelet Volume 8.8 fL (7.4-10.4); Platelet Count 171 10x3/uL (130-400); RBC Distribution Width 15.5 % (11.5-14.5); Red Blood Cell (RBC) Count 2.29 mill/uL (4.70-6.10); White Blood Cell (WBC) Count 6.2 10x3/uL (4.8-10.8)
[2022-07-21 05:25] LABS: #Eosinphils 0.2 thou/uL (0.0-0.7); #Lymphocytes 1.5 thou/uL (1.20-3.40); #Monocytes 0.6 thou/uL (0.11-0.59); %Basophils 0.2 % (0.0-1.0); %Eosinophils 2.6 % (0.0-10.0); %Lymphocytes 23.7 % (21.0-51.0); %Monocytes 9.3 % (0.0-10.0); %Neutrophils 64.1 % (42.0-75.0); Anisocytosis SLIGHT = 6-15 cells (100X) (0-5/hpf); Eosinophils 2 % (0-10); Lymphocytes 19 % (21-51); MDiff Complete? YES; Monocytes 7 % (0-10); Neutrophil 70 % (42-75); Platelet Morphology Comment Appears Adequate; Polychromasia SLIGHT = 2-3 cells (100X) (0-2/hpf)
[2022-07-21] MEDS: Gabapentin 100 MG CAP PO SCH ×3 (08:39→20:31)
[2022-07-21] MEDS: HYDROcodone/Acetaminophen 5/325 mg Tablet PO PRN ×2 (08:39→18:14)
[2022-07-21] MEDS: Lisinopril 10 MG TAB PO SCH (08:40)
[2022-07-21] MEDS: Aspirin 81 mg Enteric Coated Tablet PO SCH (08:40)
[2022-07-21] MEDS: Cyanocobalamin (Vitamin B-12) 1,000 MCG TAB PO SCH (08:40)
[2022-07-21] MEDS: Heparin 5,000 UNITS/ML VIAL SC SCH ×3 (08:41→20:31)
[2022-07-21] MEDS ORDERED: Triple Antibiotic Oint 1 GM Packet TOP PRN (14:59)
[2022-07-21] MEDS: Atorvastatin Calcium 40 MG TAB PO SCH (20:31)
[2022-07-22 04:00] LABS: #Eosinphils 0.2 thou/uL (0.0-0.7); #Lymphocytes 1.4 thou/uL (1.20-3.40); #Monocytes 0.6 thou/uL (0.11-0.59); #Neutrophils 4.4 thou/uL (1.40-6.50); %Basophils 0.4 % (0.0-1.0); %Eosinophils 2.6 % (0.0-10.0); %Lymphocytes 21.1 % (21.0-51.0); %Monocytes 8.7 % (0.0-10.0); %Neutrophils 67.3 % (42.0-75.0); Hemoglobin 7.5 g/dL (14.0-18.0); Mean Corpuscular HGB CONC 33.5 g/dL (32.0-36.0); Mean Corpuscular Hemoglobin 32.2 pg (27.0-31.0); Mean Platelet Volume 7.8 fL (7.4-10.4); Platelet Count 194 10x3/uL (130-400); RBC Distribution Width 14.9 % (11.5-14.5); Red Blood Cell (RBC) Count 2.31 mill/uL (4.70-6.10); White Blood Cell (WBC) Count 6.5 10x3/uL (4.8-10.8)
[2022-07-22] MEDS: HYDROcodone/Acetaminophen 5/325 mg Tablet PO PRN (04:55)
[2022-07-22] MEDS: Heparin 5,000 UNITS/ML VIAL SC SCH ×2 (09:42→14:25)
[2022-07-22] MEDS: Lisinopril 10 MG TAB PO SCH (09:43)
[2022-07-22] MEDS: Cyanocobalamin (Vitamin B-12) 1,000 MCG TAB PO SCH (09:43)
[2022-07-22] MEDS: Gabapentin 100 MG CAP PO SCH ×2 (09:44→14:25)
[2022-07-22] MEDS: Aspirin 81 mg Enteric Coated Tablet PO SCH (09:44)
[2022-07-22] MEDS: Polyethylene Glycol 3350 17 GM Packet PO SCH (09:45)
[2022-07-22 12:04] VITALS: BP 130/60; TEMP 98.4
== END 2022-07-22 16:20 | DRG 854 ==
LOC: ERS 18:20 → ERHOLD 20:55 → 2NO 07-18 12:43
PROVIDERS: ADMIT Family Medicine; ATTEND Family Medicine
PROC: 0Y6J0Z1 Detachment at Left Lower Leg, High, Open Approach (ICD-10-PCS; principal; 2022-07-19)
PROC: 30233N1 Transfusion of Nonautologous Red Blood Cells into Peripheral Vein, Percutaneous Approach (ICD-10-PCS; 2022-07-19)
DX: A41.9 Sepsis, unspecified organism (principal); E11.52 Type 2 diabetes mellitus with diabetic peripheral angiopathy with gangrene; M86.8X7 Other osteomyelitis, ankle and foot; I10 Essential (primary) hypertension; E78.5 Hyperlipidemia, unspecified; E87.6 Hypokalemia; E11.65 Type 2 diabetes mellitus with hyperglycemia; E11.69 Type 2 diabetes mellitus with other specified complication; Z20.822 Contact with and (suspected) exposure to COVID-19; Z89.412 Acquired absence of left great toe; Z79.82 Long term (current) use of aspirin; Z79.899 Other long term (current) drug therapy
CPT/HCPCS: 36415; 36416; 36430; 80048; 80053; 80202; 81003; 81015; 83036; 83540; 83550; 83605; 85025; 85652; 86140; 86850; 86900; 86901; 87040; 88307; 88311; 93005; 96365; 96366; 96367; J0692; J1170; J1644; J1815; J1885; J2543; J3010; J3370; J3370-JW; J3490; J7120; P9016; U0003; U0005

== ENCOUNTER 2022-09-10 21:03 | Inpatient (IN) | payer MEDICARE ==
[2022-09-10 21:45] LABS: #Basophils 0.1 thou/uL (0.0-0.2); #Eosinphils 0.1 thou/uL (0.0-0.7); #Lymphocytes 2.7 thou/uL (1.20-3.40); #Monocytes 0.9 thou/uL (0.11-0.59); %Basophils 0.3 % (0.0-1.0); %Eosinophils 0.4 % (0.0-10.0); %Lymphocytes 15.3 % (21.0-51.0); %Monocytes 5.2 % (0.0-10.0); %Neutrophils 78.7 % (42.0-75.0); Hemoglobin 10.9 g/dL (14.0-18.0); Mean Corpuscular HGB CONC 32.7 g/dL (32.0-36.0); Mean Corpuscular Hemoglobin 32.2 pg (27.0-31.0); Mean Corpuscular Volume 98.5 fl (78.0-98.0); Mean Platelet Volume 7.8 fL (7.4-10.4); Platelet Count 371 10x3/uL (130-400); RBC Distribution Width 14.2 % (11.5-14.5); White Blood Cell (WBC) Count 17.8 10x3/uL (4.8-10.8)
[2022-09-10 22:06] LABS: ALT (SGPT) 19 U/L (8-55); AST (SGOT) 12 U/L (5-34); Albumin 3.8 g/dL (3.4-4.8); Alkaline Phosphatase 145 U/L (40-110); Anion Gap 19 mmol/L (10-20); BUN (Urea Nitrogen) 49 mg/dL (8.4-25.7); Bilirubin, Total 1.2 mg/dL (0.2-1.2); Calc. Creatinine Clearance 0 mL/min (70-130); Carbon Dioxide 23 mmol/L (23-31); Chloride 106 mmol/L (98-107); Estimated GFR 76; Globulin 3.6 g/dL (2.4-3.5); Glucose 207 mg/dL (83-110); Potassium 4.2 mmol/L (3.5-5.1); Protein, Total 7.4 g/dL (5.8-8.1); Sodium 144 mmol/L (136-145)
[2022-09-11] MEDS ORDERED: Piperacillin/Tazobactam 3.375 GM VIAL ONE (00:26)
[2022-09-11] MEDS ORDERED: Dextrose 5% in Water 1,000 ML IV PRN (00:34)
[2022-09-11] MEDS ORDERED: HumaLOG 300 UNITS/3 ML VIAL SC PRN ×2 (00:34)
[2022-09-11] MEDS ORDERED: Dextrose 50% Abboject 50 ML SYRINGE SLOW IVP PRN (00:34)
[2022-09-11] MEDS ORDERED: Vancomycin 1 GM/200 ML (FROZEN) BAG ONE (01:56)
[2022-09-11 03:45] VITALS: BMI 12.8
[2022-09-11] MEDS: Lactated Ringer's 1,000 ML IV SCH ×2 (04:29→15:46)
[2022-09-11] MEDS: Piperacillin/Tazobactam 3.375 GM in Sodium Chloride 0.9% 100 ML IVPB SCH ×3 (06:09→21:10)
[2022-09-11 06:15] LABS: Hemoglobin 10.2 g/dL (14.0-18.0); Mean Corpuscular HGB CONC 33.1 g/dL (32.0-36.0); Mean Corpuscular Hemoglobin 32.2 pg (27.0-31.0); Mean Corpuscular Volume 97.1 fl (78.0-98.0); Platelet Count 342 10x3/uL (130-400); RBC Distribution Width 14.1 % (11.5-14.5); Red Blood Cell (RBC) Count 3.16 mill/uL (4.70-6.10); White Blood Cell (WBC) Count 21.4 10x3/uL (4.8-10.8)
[2022-09-11 06:16] LABS: Anion Gap 16 mmol/L (10-20); BUN (Urea Nitrogen) 48 mg/dL (8.4-25.7); Calc. Creatinine Clearance 43 mL/min (70-130); Calcium 9.5 mg/dL (7.8-10.44); Carbon Dioxide 24 mmol/L (23-31); Chloride 107 mmol/L (98-107); Estimated GFR 86; Glucose 140 mg/dL (83-110); Potassium 3.6 mmol/L (3.5-5.1); Sodium 143 mmol/L (136-145)
[2022-09-11 07:15] LABS: Band 13 % (5-11); Lymphocytes 10 % (21-51); MDiff Complete? YES; Monocytes 2 % (0-10); Neutrophil 75 % (42-75); Platelet Morphology Comment Appears Adequate; Polychromasia SLIGHT = 2-3 cells (100X) (0-2/hpf)
[2022-09-11] MEDS ORDERED: Gabapentin 100 MG CAP PO SCH (09:00)
[2022-09-11] MEDS ORDERED: Aspirin 81 mg Enteric Coated Tablet PO SCH (09:00)
[2022-09-11] MEDS: Cyanocobalamin (Vitamin B-12) 1,000 MCG TAB PO SCH (09:38)
[2022-09-11] MEDS: Gabapentin 100 MG CAP PO SCH (09:39)
[2022-09-11] MEDS: Tamsulosin HCl 0.4 MG CAP PO SCH (09:41)
[2022-09-11] MEDS: Lisinopril 10 MG TAB PO SCH (09:41)
[2022-09-11 11:16] LABS: Bilirubin Negative (Negative); Blood, Urine 1+ (Negative); Clarity Turbid (Clear); Glucose, Urine (Dipstick) Normal (Negative); Ketone, Urine 10 mg/dL (Negative); Leukocyte 500 Leu/uL (Negative); Nitrite Negative (Negative); Protein, Urine (Dipstick) 20 mg/dL (Neg-Trace); RBC/HPF 0-3 HPF (0-3); Specific Gravity, Urine 1.024 (1.002-1.036); Squamous Epithelial None Seen HPF (0-3); Urobilinogen Normal mg/dL (Less than 2); pH, Urine 5.5 (5.0-9.0)
[2022-09-11 11:17] LABS: Bacteria/HPF 1+ HPF (None Seen); WBC/HPF 21-50 HPF (0-3)
[2022-09-11] MEDS: Atorvastatin Calcium 40 MG TAB PO SCH (21:10)
[2022-09-11] MEDS: Acetaminophen 325 MG TAB PO PRN (21:24)
[2022-09-12] MEDS: Vancomycin HCl 750 MG in Sodium Chloride 0.9% 250 ML 250 ML IVPB SCH (02:15)
[2022-09-12] MEDS: Piperacillin/Tazobactam 3.375 GM in Sodium Chloride 0.9% 100 ML IVPB SCH ×3 (05:09→20:25)
[2022-09-12] MEDS: Lactated Ringer's 1,000 ML IV SCH ×2 (05:13→18:12)
[2022-09-12 08:48] LABS: #Eosinphils 0.1 thou/uL (0.0-0.7); #Lymphocytes 1.3 thou/uL (1.20-3.40); #Monocytes 0.4 thou/uL (0.11-0.59); #Neutrophils 5.4 thou/uL (1.40-6.50); %Basophils 0.2 % (0.0-1.0); %Eosinophils 1.6 % (0.0-10.0); %Lymphocytes 17.9 % (21.0-51.0); %Monocytes 5.8 % (0.0-10.0); %Neutrophils 74.6 % (42.0-75.0); Hemoglobin 7.8 g/dL (14.0-18.0); Mean Corpuscular HGB CONC 32.2 g/dL (32.0-36.0); Mean Corpuscular Volume 99.3 fl (78.0-98.0); Mean Platelet Volume 7.7 fL (7.4-10.4); Platelet Count 195 10x3/uL (130-400); RBC Distribution Width 13.9 % (11.5-14.5); Red Blood Cell (RBC) Count 2.44 mill/uL (4.70-6.10); White Blood Cell (WBC) Count 7.3 10x3/uL (4.8-10.8)
[2022-09-12] MEDS: Lisinopril 10 MG TAB PO SCH (10:18)
[2022-09-12] MEDS: Cyanocobalamin (Vitamin B-12) 1,000 MCG TAB PO SCH (10:18)
[2022-09-12] MEDS: Gabapentin 100 MG CAP PO SCH (10:18)
[2022-09-12] MEDS: Tamsulosin HCl 0.4 MG CAP PO SCH (10:19)
[2022-09-12 11:18] LABS: Anion Gap 12 mmol/L (10-20); BUN (Urea Nitrogen) 30 mg/dL (8.4-25.7); Calc. Creatinine Clearance 55 mL/min (70-130); Calcium 8.1 mg/dL (7.8-10.44); Carbon Dioxide 24 mmol/L (23-31); Chloride 110 mmol/L (98-107); Estimated GFR 93; Glucose 120 mg/dL (83-110); Potassium 3.5 mmol/L (3.5-5.1); Sodium 142 mmol/L (136-145)
[2022-09-12] MEDS: Atorvastatin Calcium 40 MG TAB PO SCH (20:26)
[2022-09-13] MEDS: Vancomycin HCl 750 MG in Sodium Chloride 0.9% 250 ML 250 ML IVPB SCH (02:22)
[2022-09-13] MEDS: Piperacillin/Tazobactam 3.375 GM in Sodium Chloride 0.9% 100 ML IVPB SCH ×3 (03:58→20:19)
[2022-09-13 05:24] LABS: #Eosinphils 0.1 thou/uL (0.0-0.7); #Lymphocytes 1.4 thou/uL (1.20-3.40); #Monocytes 0.3 thou/uL (0.11-0.59); %Eosinophils 1.3 % (0.0-10.0); %Lymphocytes 24.4 % (21.0-51.0); %Monocytes 5.6 % (0.0-10.0); %Neutrophils 68.7 % (42.0-75.0); Hemoglobin 7.6 g/dL (14.0-18.0); Mean Corpuscular HGB CONC 32.9 g/dL (32.0-36.0); Mean Corpuscular Hemoglobin 32.7 pg (27.0-31.0); Mean Corpuscular Volume 99.5 fl (78.0-98.0); Mean Platelet Volume 7.7 fL (7.4-10.4); Platelet Count 181 10x3/uL (130-400); RBC Distribution Width 13.7 % (11.5-14.5); Red Blood Cell (RBC) Count 2.31 mill/uL (4.70-6.10); White Blood Cell (WBC) Count 5.9 10x3/uL (4.8-10.8)
[2022-09-13 05:29] LABS: Prothrombin Time 13.8 sec (12.0-14.7)
[2022-09-13 05:30] LABS: PTT 44.3 sec (22.9-36.1)
[2022-09-13 05:43] LABS: Anion Gap 10 mmol/L (10-20); BUN (Urea Nitrogen) 23 mg/dL (8.4-25.7); Calc. Creatinine Clearance 55 mL/min (70-130); Calcium 8.1 mg/dL (7.8-10.44); Carbon Dioxide 24 mmol/L (23-31); Chloride 112 mmol/L (98-107); Estimated GFR 93; Glucose 108 mg/dL (83-110); Potassium 3.5 mmol/L (3.5-5.1); Sodium 142 mmol/L (136-145)
[2022-09-13] MEDS: Lactated Ringer's 1,000 ML IV SCH (06:47)
[2022-09-13] MEDS: Cyanocobalamin (Vitamin B-12) 1,000 MCG TAB PO SCH (09:05)
[2022-09-13] MEDS: Tamsulosin HCl 0.4 MG CAP PO SCH (09:05)
[2022-09-13] MEDS: Gabapentin 100 MG CAP PO SCH (09:05)
[2022-09-13] MEDS: Lisinopril 10 MG TAB PO SCH (09:06)
[2022-09-13] MEDS ORDERED: fentaNYL 50 mcg/mL 1 mL Vial ONE (10:35)
[2022-09-13] MEDS ORDERED: Midazolam HCl 2 mg/2 ml Vial ONE (10:35)
[2022-09-13] MEDS ORDERED: Sodium Bicarbonate 2.5 MEQ/5 ML VIAL ONE (10:35)
[2022-09-13] MEDS: Vancomycin HCl 500 MG in Sodium Chloride 0.9% 100 ML IVPB SCH (13:52)
[2022-09-13] MEDS: Atorvastatin Calcium 40 MG TAB PO SCH (20:19)
[2022-09-14] MEDS: Lactated Ringer's 1,000 ML IV SCH ×2 (01:09→04:36)
[2022-09-14] MEDS: Vancomycin HCl 500 MG in Sodium Chloride 0.9% 100 ML IVPB SCH (01:28)
[2022-09-14] MEDS: Piperacillin/Tazobactam 3.375 GM in Sodium Chloride 0.9% 100 ML IVPB SCH ×3 (04:27→20:50)
[2022-09-14 05:14] LABS: #Eosinphils 0.1 thou/uL (0.0-0.7); #Lymphocytes 1.3 thou/uL (1.20-3.40); #Monocytes 0.3 thou/uL (0.11-0.59); #Neutrophils 3.6 thou/uL (1.40-6.50); %Basophils 0.2 % (0.0-1.0); %Eosinophils 1.2 % (0.0-10.0); %Lymphocytes 24.3 % (21.0-51.0); %Monocytes 4.8 % (0.0-10.0); %Neutrophils 69.5 % (42.0-75.0); Hemoglobin 7.9 g/dL (14.0-18.0); Mean Corpuscular HGB CONC 32.4 g/dL (32.0-36.0); Mean Corpuscular Hemoglobin 31.6 pg (27.0-31.0); Mean Corpuscular Volume 97.7 fl (78.0-98.0); Mean Platelet Volume 7.8 fL (7.4-10.4); Platelet Count 197 10x3/uL (130-400); RBC Distribution Width 13.4 % (11.5-14.5); Red Blood Cell (RBC) Count 2.51 mill/uL (4.70-6.10); White Blood Cell (WBC) Count 5.1 10x3/uL (4.8-10.8)
[2022-09-14 05:37] LABS: Anion Gap 11 mmol/L (10-20); BUN (Urea Nitrogen) 15 mg/dL (8.4-25.7); Calc. Creatinine Clearance 59 mL/min (70-130); Calcium 8.2 mg/dL (7.8-10.44); Carbon Dioxide 23 mmol/L (23-31); Chloride 109 mmol/L (98-107); Estimated GFR 95; Glucose 143 mg/dL (83-110); Potassium 3.5 mmol/L (3.5-5.1); Sodium 139 mmol/L (136-145)
[2022-09-14] MEDS: Gabapentin 100 MG CAP PO SCH (08:44)
[2022-09-14] MEDS: Lisinopril 10 MG TAB PO SCH (08:44)
[2022-09-14] MEDS: Cyanocobalamin (Vitamin B-12) 1,000 MCG TAB PO SCH (08:44)
[2022-09-14] MEDS: Tamsulosin HCl 0.4 MG CAP PO SCH (08:44)
[2022-09-14] MEDS: Atorvastatin Calcium 40 MG TAB PO SCH (20:53)
[2022-09-15 05:15] LABS: #Eosinphils 0.1 thou/uL (0.0-0.7); #Lymphocytes 1.5 thou/uL (1.20-3.40); #Monocytes 0.3 thou/uL (0.11-0.59); #Neutrophils 3.9 thou/uL (1.40-6.50); %Basophils 0.4 % (0.0-1.0); %Eosinophils 1.9 % (0.0-10.0); %Lymphocytes 25.7 % (21.0-51.0); %Monocytes 5.2 % (0.0-10.0); %Neutrophils 66.8 % (42.0-75.0); Hemoglobin 7.8 g/dL (14.0-18.0); Mean Corpuscular HGB CONC 32.7 g/dL (32.0-36.0); Mean Corpuscular Hemoglobin 31.9 pg (27.0-31.0); Mean Corpuscular Volume 97.5 fl (78.0-98.0); Mean Platelet Volume 7.8 fL (7.4-10.4); Platelet Count 194 10x3/uL (130-400); RBC Distribution Width 13.6 % (11.5-14.5); Red Blood Cell (RBC) Count 2.43 mill/uL (4.70-6.10); White Blood Cell (WBC) Count 5.9 10x3/uL (4.8-10.8)
[2022-09-15 05:28] LABS: Anion Gap 9 mmol/L (10-20); BUN (Urea Nitrogen) 10 mg/dL (8.4-25.7); Calc. Creatinine Clearance 55 mL/min (70-130); Calcium 8.3 mg/dL (7.8-10.44); Carbon Dioxide 25 mmol/L (23-31); Chloride 108 mmol/L (98-107); Estimated GFR 93; Glucose 122 mg/dL (83-110); Potassium 3.9 mmol/L (3.5-5.1); Sodium 138 mmol/L (136-145)
[2022-09-15] MEDS: Cyanocobalamin (Vitamin B-12) 1,000 MCG TAB PO SCH (12:29)
[2022-09-15] MEDS: Gabapentin 100 MG CAP PO SCH (12:29)
[2022-09-15] MEDS: Tamsulosin HCl 0.4 MG CAP PO SCH (12:29)
[2022-09-15] MEDS: Lisinopril 10 MG TAB PO SCH (12:29)
[2022-09-15] MEDS: Atorvastatin Calcium 40 MG TAB PO SCH (23:21)
[2022-09-16] MEDS: Acetaminophen 325 MG TAB PO PRN ×2 (00:25→13:32)
[2022-09-16] MEDS: Lisinopril 10 MG TAB PO SCH (10:48)
[2022-09-16] MEDS: Gabapentin 100 MG CAP PO SCH (10:49)
[2022-09-16] MEDS: Cyanocobalamin (Vitamin B-12) 1,000 MCG TAB PO SCH (10:49)
[2022-09-16] MEDS: Tamsulosin HCl 0.4 MG CAP PO SCH (10:49)
[2022-09-16] MEDS: Atorvastatin Calcium 40 MG TAB PO SCH (21:21)
[2022-09-17] MEDS: Acetaminophen 325 MG TAB PO PRN ×2 (04:04→21:05)
[2022-09-17] MEDS: Tamsulosin HCl 0.4 MG CAP PO SCH (08:21)
[2022-09-17] MEDS: Gabapentin 100 MG CAP PO SCH (08:21)
[2022-09-17] MEDS: Lisinopril 10 MG TAB PO SCH (08:21)
[2022-09-17] MEDS: Cyanocobalamin (Vitamin B-12) 1,000 MCG TAB PO SCH (08:22)
[2022-09-17] MEDS: Atorvastatin Calcium 40 MG TAB PO SCH (21:06)
[2022-09-18] MEDS: Lisinopril 10 MG TAB PO SCH (10:05)
[2022-09-18] MEDS: Acetaminophen 325 MG TAB PO PRN (10:05)
[2022-09-18] MEDS: Cyanocobalamin (Vitamin B-12) 1,000 MCG TAB PO SCH (10:06)
[2022-09-18] MEDS: Gabapentin 100 MG CAP PO SCH (10:06)
[2022-09-18] MEDS: Aspirin 81 mg Enteric Coated Tablet PO SCH (10:06)
[2022-09-18] MEDS: Tamsulosin HCl 0.4 MG CAP PO SCH (10:06)
[2022-09-18] MEDS: Atorvastatin Calcium 40 MG TAB PO SCH (21:19)
[2022-09-19 09:55] LABS: Anion Gap 13 mmol/L (10-20); BUN (Urea Nitrogen) 10 mg/dL (8.4-25.7); Calc. Creatinine Clearance 54 mL/min (70-130); Calcium 8.7 mg/dL (7.8-10.44); Carbon Dioxide 25 mmol/L (23-31); Chloride 103 mmol/L (98-107); Estimated GFR 93; Glucose 114 mg/dL (83-110); Potassium 3.8 mmol/L (3.5-5.1); Sodium 137 mmol/L (136-145)
[2022-09-19] MEDS: Lisinopril 10 MG TAB PO SCH ×2 (10:08→10:16)
[2022-09-19] MEDS: Aspirin 81 mg Enteric Coated Tablet PO SCH (10:08)
[2022-09-19] MEDS: Gabapentin 100 MG CAP PO SCH (10:08)
[2022-09-19] MEDS: Acetaminophen 325 MG TAB PO PRN (10:09)
[2022-09-19] MEDS: Tamsulosin HCl 0.4 MG CAP PO SCH (10:10)
[2022-09-19] MEDS: Cyanocobalamin (Vitamin B-12) 1,000 MCG TAB PO SCH (10:10)
[2022-09-19] MEDS ORDERED: Trospium 20 MG TAB PO SCH ×2 (11:30→21:00)
[2022-09-19 15:51] VITALS: BP 109/49; TEMP 97.3
== END 2022-09-19 18:45 | DRG 698 ==
LOC: ERS 21:03 → MSONC 09-11 00:16
PROVIDERS: ADMIT Family Medicine; ATTEND Family Medicine
PROC: 0T2BX0Z Change Drainage Device in Bladder, External Approach (ICD-10-PCS; principal; 2022-09-11)
PROC: 0T9B30Z Drainage of Bladder with Drainage Device, Percutaneous Approach (ICD-10-PCS; 2022-09-13)
DX: T83.511A Infection and inflammatory reaction due to indwelling urethral catheter, initial encounter (principal); A41.51 Sepsis due to Escherichia coli [E. coli]; R64 Cachexia; E44.1 Mild protein-calorie malnutrition; L97.419 Non-pressure chronic ulcer of right heel and midfoot with unspecified severity; Z16.24 Resistance to multiple antibiotics; Z68.1 Body mass index [BMI] 19.9 or less, adult; N39.0 Urinary tract infection, site not specified; E86.0 Dehydration; I10 Essential (primary) hypertension; E78.5 Hyperlipidemia, unspecified; E11.51 Type 2 diabetes mellitus with diabetic peripheral angiopathy without gangrene; E11.40 Type 2 diabetes mellitus with diabetic neuropathy, unspecified; R13.10 Dysphagia, unspecified; N48.5 Ulcer of penis; R33.9 Retention of urine, unspecified; Y83.8 Other surgical procedures as the cause of abnormal reaction of the patient, or of later complication, without mention of misadventure at the time of the procedure; D53.9 Nutritional anemia, unspecified; N31.9 Neuromuscular dysfunction of bladder, unspecified; Z85.038 Personal history of other malignant neoplasm of large intestine; Z98.890 Other specified postprocedural states; Z89.512 Acquired absence of left leg below knee; Z79.899 Other long term (current) drug therapy; Z79.82 Long term (current) use of aspirin; Z86.718 Personal history of other venous thrombosis and embolism; L89.152 Pressure ulcer of sacral region, stage 2
CPT/HCPCS: 36415; 36416; 51102; 51702; 71045; 77002; 80048; 80053; 80202; 81001; 84145; 85025; 85610; 85730; 87040; 87086; 87186; 93005; 96365; 96375; 97139; C2627; J1650; J1815; J2250; J2543; J3010; J3370; J3370-JW; J3490; J7050; J7120